=== PATIENT | male | born 1975 | race Caucasian/White ===

== ENCOUNTER 2022-07-31 12:30 | Outpatient (CLI) | payer OTHER, SELFPAY ==
--- OUTSIDE RECORDS SUMMARY | 2022-07-31 12:32 | XMS_ITS | Encounter Summary ---
:1975 Author Organization [facility] Address [address] [place] [address] Care Team Providers Name Role Phone Unavailable Primary Care Provider Unavailable Encounter Details Date Type Department Care Team Description 10/30/2019 Clinical Communication Department of Shankar Cervantes, Orthopedic Surgery in [place], [place] [address] [facility] [address] [place] [phone] [phone] Social History Tobacco Use Types Packs/Day Years Used Date Smoking Tobacco: Never Sex Assigned at Date Recorded Male 07/27/2022 1:15 PM CDT documented as of this encounter Miscellaneous Notes Telephone Encounter - Marilee Bauer - 10/30/2019 7:15 AM CST Could you please have Dr. Cervantes review this RAST pt request? Thank you, Idania AND ASH SUPERVISOR documented in this encounter Plan of Treatment Not on filedocumented as of this encounter Visit Diagnoses Not on filedocumented in this encounter
--- OUTSIDE RECORDS SUMMARY | 2022-07-31 12:32 | XMS_ITS | Encounter Summary ---
:1975 Author Organization [facility] Address [address] [place] [address] Care Team Providers Name Role Phone Unavailable Primary Care Provider Unavailable Encounter Details Date Type Department Care Team Description 08/29/2018 [facility] Reinaldo Benz evus Atypical (Primary Dx); AND JOSSY Lopez M.D. Melanocytic Nevi Of Other Parts Of Face [address] [facility] [address] [place] [address] [place], [place] [phone] Social History Tobacco Use Types Packs/Day Years Used Date Smoking Tobacco: Never Sex Assigned at Date Recorded Male 07/27/2022 1:15 PM CDT documented as of this encounter Plan of Treatment Not on filedocumented as of this encounter Visit Diagnoses Diagnosis Nevus Atypical - Primary Melanocytic Nevi Of Other Parts Of Face documented in this encounter
--- OUTSIDE RECORDS SUMMARY | 2022-07-31 12:32 | XMS_ITS | Encounter Summary ---
:1975 Author Organization [facility] Address [address] [place] [address] Care Team Providers Name Role Phone Unavailable Primary Care Provider Unavailable Encounter Details Date Type Department Care Team Description 11/26/2019 Clinical Communication Department of Shankar Cervantes, Orthopedic Surgery in [place], [place] [address] [facility] [address] [place] [address] [phone] Social History Tobacco Use Types Packs/Day Years Used Date Smoking Tobacco: Never Sex Assigned at Date Recorded Male 07/27/2022 1:15 PM CDT documented as of this encounter Miscellaneous Notes Telephone Encounter - Jose Morales APRN, C.N.P. - 11/26/2019 10:23 AM ENGLISH DIVISION CHAIR Order signed [facility]H DIVISION CHAIR Telephone Encounter - Marilee Bauer - 11/26/2019 9:36 AM CST Add to HART - Rosy Knee Pain ISH DIVISION CHAIR documented in this encounter Plan of Treatment Not on filedocumented as of this encounter Visit Diagnoses Diagnosis Pain Knee Left - Primary documented in this encounter
--- OUTSIDE RECORDS SUMMARY | 2022-07-31 12:32 | XMS_ITS | Encounter Summary ---
:1975 Author Organization [facility] Address [address] [place] [address] Care Team Providers Name Role Phone Unavailable Primary Care Provider Unavailable Reason for Visit Appointment Request (Routine) - Closed Specialty Diagnoses / Procedures Referred By Contact Refer red To Contact Dermatology Referral ID Status Reason Start Date Expiration Date Visits Requ ested Visits Authorized [id number] Closed 08/28/2018 08/28/2019 1 Encounter Details Date Type Department Care Team Description 09/02/2018 Comprehensive Visit Department of Bri Park (Primary Dx); Dermatology in [place] Dermatoheliosis [address], [place] [phone] Social History Tobacco Use Types Packs/Day Years Used Date Smoking Tobacco: Never Sex Assigned at Date Recorded Male 07/27/2022 1:15 PM CDT documented as of this encounter Consult Notes Bri Park M.D. - 09/02/2018 1:00 PM CDT Supervised by: Dr. Josef Solis, who was immediately available for consultation. Correspondence to Dr.Emily Park. CHIEF COMPLAINT / REASON FOR VISIT Multiple nevi of concern HISTORY OF PRESENT ILLNESS Mr. Eladio Jones is a 43 y.o. male with no significant past dermatologic history who presents today for evaluation of multiple nevi. He denies a personal or family history of skin cancers including nonmelanoma and melanoma skin cancers. 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 He wears sun protective clothing and does is a to protect himself from the sun. Today, the patient is concerned growing nevi on his face. He has had these lesions for greater than 20 year. They are slightly enlarging vertically and horizontally. He denies coloration changes or accompanying symptoms, such as pruritus, tenderness, or easy bleeding. PHYSICAL EXAM General: Awake, alert, in no acute distress, and with appropriate affect. Skin: A waist up skin examination was performed of head, neck, chest, back, and upper extremities per patient request. Chavarria type I skin. Diffuse solar lentigines throughout. He has 3 skin colored soft dome-shaped papule with regular comma shaped vessels under dermoscopy consistent with banal appearing dermal nevi involving the left upper cheek, left jawline, and right jawline. Scattered few light brown elliptical macules with regular reticular pigment network under dermoscopy consistent with banal appearing melanocytic nevi. He has scattered nicole angiomas. ASSESSMENT / PLAN #1 Banal-appearing nevi The ABCDE criteria for melanoma was reviewed with the patient. None of the patient's nevi reach the clinical threshold for biopsy. I recommend continued sun protection, self-skin examinations, and observation. Should any of the patient's nevi change in size, color, texture, or shape or develop symptoms such as itching or bleeding, I recommend an immediate return visit for reassessment. #2 Dermatoheliosis Sun protection and sun avoidance were reviewed with the patient. Educational materials were providedregarding skin self-examination, the warning signs and symptoms of skin cancer, and the proper use of sunscreens. I would recommend a full skin cancer screening examination with an appropriately trained clinician every year. #2 Nicole angiomas #3 Solar lentigines The benign nature of the skin lesion(s) was discussed with the patient. No treatment is required. I recommend continued observation. Should symptoms or changes develop related to this condition, I would recommend a return visit for reassessment. All questions answered. INFORMED CONSENT Discussed the risks, benefits, alternatives, and the necessity of other members of the healthcare team participating in the procedure. All questions answered and consent given. PATIENT EDUCATION Ready to learn. No apparent learning barriers were identified. Learning preferences include listening. Explained diagnosis and treatment plan; patient/guardian of patient expressed understanding of thecontent. documented in this encounter Plan of Treatment Not on filedocumented as of this encounter Visit Diagnoses Diagnosis Nevi Multiple - Primary Dermatoheliosis documented in this encounter
--- OUTSIDE RECORDS SUMMARY | 2022-07-31 12:32 | XMS_ITS | Encounter Summary ---
:1975 Author Organization [facility] Address [address] [place] [address] Care Team Providers Name Role Phone Unavailable Primary Care Provider Unavailable Reason for Referral Outpatient (Routine) - Closed Specialty Diagnoses / Procedures Referred By Contact Refer red To Contact Dermatology Diagnoses Keratosis Actinic Reinaldo Benz M.D. [facility] [address] [place] [id number] Referral ID Status Reason Start Date Expiration Date Visits Requ ested Visits Authorized [id number] Closed 09/01/2021 09/01/2022 1 1 Encounter Details Date Type Department Care Team Description 09/01/2021 [facility] Reinaldo Benz eratosis Actinic AND JOSSY Lopez M.D. (Primary Dx) 1999 [facility] [address] [place] [address] [place], [place] [phone] Social History Tobacco Use Types Packs/Day Years Used Date Smoking Tobacco: Never Sex Assigned at Date Recorded Male 07/27/2022 1:15 PM CDT documented as of this encounter Plan of Treatment Scheduled Referrals Name Type Priority Associated Order Schedule Diagnoses Dermatology Referral Outpatient Referral Routine Keratosis Act inic Expected: 09/01/2021 (Approximate), Expires: 09/01/2024 documented as of this encounter Visit Diagnoses Diagnosis Keratosis Actinic - Primary documented in this encounter
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
--- OUTSIDE RECORDS SUMMARY | 2022-07-31 12:32 | XMS_ITS | Encounter Summary ---
:1975 Author Organization [facility] Address [address] [place] [address] Care Team Providers Name Role Phone Unavailable Primary Care Provider Unavailable Encounter Details Date Type Department Care Team Description 10/28/2019 [facility] Reinaldo Benz Knee Left AND JOSSY Lopez M.D. (Primary Dx) [address] [place] [address] [address] [place] [address] [place], [place] [phone] Social History Tobacco Use Types Packs/Day Years Used Date Smoking Tobacco: Never Sex Assigned at Date Recorded Male 07/27/2022 1:15 PM CDT documented as of this encounter Plan of Treatment Not on filedocumented as of this encounter Visit Diagnoses Diagnosis Pain Knee Left - Primary documented in this encounter
--- OUTSIDE RECORDS SUMMARY | 2022-07-31 12:32 | XMS_ITS | Encounter Summary ---
:1975 Author Organization [facility] Address [address] [place] [address] Care Team Providers Name Role Phone Unavailable Primary Care Provider Unavailable Encounter Details Date Type Department Care Team Description 10/25/2021 Ancillary Procedure Department of Dermatology Social History Tobacco Use Types Packs/Day Years Used Date Smoking Tobacco: Never Sex Assigned at Date Recorded Male 07/27/2022 1:15 PM CDT documented as of this encounter Plan of Treatment Not on filedocumented as of this encounter Procedures Procedure Name Priority Date/Time Associated Comments Diagnosis DERMATOLOGY IMAGE Routine 10/25/2021 2:55 PM Resu lts for this EXAM [employer] procedure are i n the results section. documented in this encounter Results cheek, left upper 13-Dermatology Image Exam (10/25/2021 2:55 PM [employer]) Specimen (Source) Anatomical Collection Method Collection Time Re ceived Time Location / / Volume Laterality 10/25/2021 2:53 PM [employer] Narrative [facility] - 10/25/2021 3:06 PM [employer] This order has been created and auto-finalized to support the import of images acquired without order. The clini emeka documentation to support these images can be found on the encounter jen t produced images. Provider Not In System IMG NON RAD IMAGING PROCEDUR ES Performing Organization Address City/State/ZIP Code Phon e Number [facility] NA documented in this encounter Visit Diagnoses Not on filedocumented in this encounter
--- OUTSIDE RECORDS SUMMARY | 2022-07-31 12:32 | XMS_ITS | Clinical Summary ---
:1975 Author Organization [facility] Address [address] [place] [address] Care Team Providers Name Role Phone Unavailable Primary Care Provider Unavailable Source Comments Patient records contain information from all sites at [facility]. For routine questions regarding patient records, call [phone] during business hours, M-F 8:00 AM - 5:00 PM Central Time. Record requests for emergency care only can be directed to [phone] at any time.[facility] Allergies No known active allergies Medications Medication Sig Dispensed Refills Start Date End Date Status fexofenadine (SUN) Take 1 tablet by 0 09/02/2014 Active 180 mg tablet mouth daily. lisinopril Take 1 tablet by 0 09/02/2014 A ctive (PRINIVIL,ZESTRIL) 10 mouth daily. mg tablet minocycline (DYNACIN) Take 1 tablet by 0 09/02/2014 Active 100 mg tablet mouth daily. Active Problems Problem Noted Date Hypertension 07/16/2011 Overview: Hypertension date of onset unknown Immunizations Name Administration Dates Next Due Influenza, Unspecified 09/06/2014, 08/30/2012 Tdap 09/02/2012, 06/19/2012 Family History Medical History Relation Name Comments Heart attack Father Hypertension Father Relation Name Status Comments Father Social History Tobacco Use Types Packs/Day Years Used Date Smoking Tobacco: Never Sex Assigned at Date Recorded Male 07/27/2022 1:15 PM CDT Last Filed Vital Signs Vital Sign Reading Time Taken Comments Blood Pressure 126/68 09/13/2015 12:49 Vital sign r esult PM CDT from Clinical No jennifer. Pulse 48 09/13/2015 12:49 Vital sign r esult PM CDT from Clinical No jennifer. Temperature - - Respiratory Rate 18 09/13/2015 12:49 Vital sign result PM CDT from Clinical No jennifer. Oxygen Saturation - - Inhaled Oxygen - - Concentration Weight 74.4 kg (163 lb 15.7 09/13/2015 12:49 Vital s ign result oz) PM CDT from Clinical No jennifer. Height 172.7 cm (5' 7.99) 09/13/2015 12:49 Vital si gn result PM CDT from Clinical No jennifer. Body Mass Index 24.94 09/13/2015 12:49 PM CDT Plan of Treatment Health Maintenance Due Date Last Done Comments CT Colonography 1977 Cologuard 1975 Colonoscopy 1975 Colorectal Cancer Screening 1975 FIT 1975 HIV Screening 1975 Hepatitis B Vaccines (1 of 1977 3 - 3-dose series) Hepatitis C Screening 1975 Office Visit for Blood 1977 Pressure Check / Re-check Creatinine Level 08/30/2015 08/30/2014, 12/26/2012 Potassium Level 08/30/2015 08/30/2014, 12/26/2012 Sodium Level 08/30/2015 08/30/2014, 12/26/2012 Fasting Glucose for 08/30/2017 08/30/2014, 12/26/2012 Diabetes Screening Lipid (Cholesterol) 12/21/2018 12/21/2013, 01/16/2013 Screening COVID-19 Vaccine (2 - 10/26/2021 10/05/2021 Pfizer series) Depression Screening 11/18/2021 (Annual PHQ-2) Influenza Vaccine (#1) 2022 08/16/2021, 08/16/2020, 09/01/2019, Additional history exists DTaP,Tdap,and Td Vaccines 02/20/2032 02/19/2022, 09/02/2012 , (4 - Td or Tdap) 06/19/2012 Pneumococcal vaccine (0-64 Aged Out 09/16/2018 No lo nger eligible years) based on patient 's age to complete this topic Medical Devices Implanted Type Area Stereotype Caster Device Shelf Model / Identifier Expiration Date Ser ial / Lot Conversions - Default Historical Implant Device Misc Other Implanted: 09/02/2014 (Quantity not on file) Description: Device Status Text - Misc O ther. screws in left knee. Insurance Payer Benefit Plan Subscriber ID Effective Dates Phone Address Type / Group [facility]ICA [facility] [id number] 2018-Lan [phone] [address] [id number] PPO EMPLOYEE PLAN t [address] [place] [id number]
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
--- OUTSIDE RECORDS SUMMARY | 2022-07-31 12:32 | XMS_ITS | Encounter Summary ---
:1975 Author Organization [facility] Address [address] [place] [address] Care Team Providers Name Role Phone Unavailable Primary Care Provider Unavailable Reason for Visit Outpatient (Routine) - Closed Specialty Diagnoses / Procedures Referred By Contact Refer red To Contact Dermatology Diagnoses Keratosis Actinic Reinaldo Benz M.D. [facility] [address] [place] [id number] Referral ID Status Reason Start Date Expiration Date Visits Requ ested Visits Authorized [id number] Closed 09/01/2021 09/01/2022 1 1 Encounter Details Date Type Department Care Team Description 10/25/2021 Comprehensive Visit Department of Waldo Masono heliosis (Primary Dx); Dermatology in [place] Act in[facility]; Erika Brar [facility] [address] [place] [phone] Social History Tobacco Use Types Packs/Day Years Used Date Smoking Tobacco: Never Sex Assigned at Date Recorded Male 07/27/2022 1:15 PM CDT documented as of this encounter Consult Notes Yonis Mason M.D. - 10/25/2021 2:40 PM CST Supervised by: Dr. Gray. Supervising practice consultant, Dr. Gray, was immediately available, but consultation was not required. Correspondence to Dr. Yonis Mason. REFERRED BY: Reinaldo Benz M.D. [address] [place] [id number] CHIEF COMPLAINT Actinic keratosis HISTORY OF PRESENT ILLNESS Robert is a 46 y.o. adult last seen in 2018 by [facility] Dermatology. Eladio Jones presents today for skin cancer screening examination. He has no significant past dermatologic history, but does have multiple nevi.He denies a personal or family history of skin cancers including nonmelanoma and melanoma skin cancers. 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 He wears sun protective clothing and does is a to protect himself from the sun. He reports scaling and red areas on the frontal scalp and hair line. He reports he picks scale off of these areas at time. Sometime one of the lesions bleeds. These areas have been frozen before. Patient also reports a lesion on the left upper cheek. He is unsure if it is increasing in size but does believe that it has. He believes that it is a mole. It becomes irritated by his mask due to its location. No treatments have been trialed at this site. Patient denies any of new, changing, and/or symptomatic lesion(s).Review of systems was negative forfever, chills, unintended weight loss, or lymphadenopathy. PAST MEDICAL/SURGICAL HISTORY No past medical history on file. PHYSICAL EXAM General: Awake, alert, in no acute distress, and with appropriate affect. Eyes: No eyelid abnormalities. No scleral injection. Skin: Focused skin exam of the face was performed per request of the patient. Chavarria skin type 2. Dermatoheliosis of the sun-exposed skin present. Patient has 5 actinic keratoses involving the face. Patient has an irritated nevus on the left upper cheek. There polymorphous vessels on dermoscopy. Noblue white veil or irregular pigmentation is appreciated. ASSESSMENT AND PLAN # dermatoheliosis Sun protection and sun avoidance were reviewed with the patient. Counseling and/or educational materials were provided regarding skin self-examination, the warning signs and symptoms of skin cancer, and the proper use of sunscreens. Recommend at least 30 SPF broad-spectrum sun screen reapplied every 2hours when outside. Avoid peak hours of sun exposure between 10 a.m. and 4 p.m. if possible. Sun protective clothing also discussed. Recommend a full skin cancer screening examination with an appropriately trained clinician every 1-2 years or sooner if concerning lesions arise prior. # actinic keratosis x 5 Given the precancerous nature of this lesion(s), treatment is medically indicated. After discussion of the risks, benefits and alternatives to treatment with cryotherapy, informed consent was obtained.We treated a total of 5 lesion(s) with two freeze-thaw cycles of liquid nitrogen cryotherapy. The pat ient tolerated the procedure well. Aftercare instructions were provided in written and verbal form to the patient. Should any of these lesions recur, the patient should return for biopsy or further evaluation. Discussed the risks, benefits, alternatives, and the necessity of other members of the healthcare team participating in the procedure. All questions answered and consent given. # changing nevus, polymorphous vessels, rule out atypical nevus versus melanoma, left upper cheek Given the irritated and changing nature of this lesion along with dermoscopy features I have recommended biopsy. The patient was amenable and tolerated the procedure well. CONSENT Discussed the risks, benefits, alternatives, and the necessity of other members of the healthcare team participating in the procedure. All questions answered and consent given. UNIVERSAL PROTOCOL Procedural pause conducted to verify: correct patient identity, procedure to be performed, and as applicable, correct side and site, correct patient position, and availability of implants, special equipment, or special requirements. PROCEDURE INFORMATION Punch biopsy. We explained the potential diagnosis and recommended that we obtain a biopsy. The risks and benefitsof the procedure were discussed, and the patient consented to these procedures. Using 1% lidocaine with epinephrine for local anesthesia, a 6-mm punch biopsy was obtained from the left upper cheek. Biopsy submitted to Dermatopathology. Biopsy site closed with a top layer of 5-0 nylon and 4-0 nylon. The skin sutures need to be removed in 5-7 days. Dressing was applied, and wound care instructions wereexplained. Biopsy results and any further recommendations will be communicated to the patient by letter. Patient given pamphlet [id number]. All questions were answered. Level of Service: 87603 E/N/C: E Mod 25: Y AK x 5 Punch x 1 Electronically signed by: Yonis Mason M.D. 10/25/21 5:37 PM ANIMAL CARE PROVIDER AL CARE PROVIDER documented in this encounter Plan of Treatment Not on filedocumented as of this encounter Procedures Procedure Name Priority Date/Time Associated Diagnosis Comme nts DERMATOPATHOLOGY Routine 10/25/2021 2:51 PM Keratosis Actinic Results for this ANIMAL CARE PROVIDER procedure are i n the results section. documented in this encounter Results Dermatopathology (10/25/2021 2:51 PM ANIMAL CARE PROVIDER) Component Value Ref Test Analysis Performed Pathologis t Range Method Time At Signature 10/30/2021 [facility] 8:55 AM ANIMAL CARE PROVIDER Report Claudia ICiera 10/30/2021 [facility] electronically Erika Gastelum 8:55 AM ANIMAL CARE PROVIDER signed by Gross Description Received in formalin labeled with the patient's n nan, 10/30/2021 [facility] medical record number, and left upper cheek is a 0.7 x 8:55 AM ANIMAL CARE PROVIDER 0.6 cm, ovoid, pale-romero skin punch biopsy excised to a depth of 0.2 cm. ??There is a 0.5 x 0.4 cm pale romero-romero, slightly bosselated lesion with irregular borders eccentrically located on the skin surface. ??The specimen is bisected and submitted entirely in cassette A1. ??Grossed by MICAH. Interpretation FINAL DIAGNOSIS 10/30/2021 [facility] A. ??Left upper cheek, Skin punch biopsy: ??Dermal nevus, 8:55 AM ANIMAL CARE PROVIDER involving peripheral biopsy borders Specimen (Source) Anatomical Collection Method Collection Time Re ceived Time Location / / Volume Laterality Skin (Left upper 10/25/2021 2:51 PM cheek) ANIMAL CARE PROVIDER Narrative This result has an attachment that is no t available. Yonis Mason M.D. LAB PATH DERM ORDERABLES Performing Organization Address City/State/ZIP Code Phon e Number [facility] - [address] [place], [place] [address] [place] [address] [facility] [address] documented in this encounter Visit Diagnoses Diagnosis Dermatoheliosis - Primary Keratosis Actinic Nevus Changing documented in this encounter
--- OUTSIDE RECORDS SUMMARY | 2022-07-31 12:32 | XMS_ITS | Encounter Summary ---
:1975 Author Organization [facility] Address [address] [place] [address] Care Team Providers Name Role Phone Unavailable Primary Care Provider Unavailable Encounter Details Date Type Department Care Team Description 08/28/2018 Abstract DATA ABSTRACTION Provider, Historical Social History Tobacco Use Types Packs/Day Years Used Date Smoking Tobacco: Never Sex Assigned at Date Recorded Male 07/27/2022 1:15 PM CDT documented as of this encounter Plan of Treatment Not on filedocumented as of this encounter Visit Diagnoses Not on filedocumented in this encounter
--- OUTSIDE RECORDS SUMMARY | 2022-07-31 12:32 | XMS_ITS | Encounter Summary ---
:1975 Author Organization [facility] Address [address] [place] [address] Care Team Providers Name Role Phone Unavailable Primary Care Provider Unavailable Reason for Visit Reason Onset Date Comments Outside L knee MRI 11/16/2019 Encounter Details Date Type Department Care Team Description 11/16/2019 Clinical Communication Department of Shankar Cervantes, Out side L knee MRI Orthopedic Surgery M[facility]iera in [place], [facility] [address] [place], [place] [address] [facility] [address] [place], [place] [phone] (Work) [phone] Social History Tobacco Use Types Packs/Day Years Used Date Smoking Tobacco: Never Sex Assigned at Date Recorded Male 07/27/2022 1:15 PM CDT documented as of this encounter Miscellaneous Notes Telephone Encounter - Lucie Campo - 11/16/2019 12:19 PM CST Outside L knee MRI done 11/12/19 is in [facility] for appt review. [employer] documented in this encounter Plan of Treatment Not on filedocumented as of this encounter Visit Diagnoses Not on filedocumented in this encounter
--- OUTSIDE RECORDS SUMMARY | 2022-07-31 12:32 | XMS_ITS | Encounter Summary ---
:1975 Author Organization [facility] Address [address] [place] [address] Care Team Providers Name Role Phone Unavailable Primary Care Provider Unavailable Encounter Details Date Type Department Care Team Description 09/06/2014 Hospital Encounter HX [facility] Josias Patterson, N.P. [address] [place] [address] 7701 (Wo rk) Social History Tobacco Use Types Packs/Day Years Used Date Smoking Tobacco: Never Assessed Sex Assigned at Date Recorded Male 07/27/2022 1:15 PM CDT documented as of this encounter Last Filed Vital Signs Vital Sign Reading Time Taken Comments Blood Pressure 129/77 09/06/2014 9:23 AM CDT Pulse 51 09/06/2014 9:23 AM CDT Temperature - - Respiratory Rate 18 09/06/2014 9:23 AM CDT Oxygen Saturation - - Inhaled Oxygen Concentration - - Weight 73.6 kg (162 lb 4.1 oz) 09/06/2014 9:23 AM CDT Height 174 cm (5' 8.5) 09/06/2014 9:23 AM CDT Body Mass Index 24.31 09/06/2014 9:23 AM CDT documented in this encounter Medications at Time of Discharge Medication Sig Dispensed Refills Start Date End Date fexofenadine (SUN) 180 Take 1 tablet by 0 mg tablet mouth daily. lisinopril Take 1 tablet by 0 09/02/2014 (PRINIVIL,ZESTRIL) 10 mg mouth daily. tablet minocycline (DYNACIN) 100 Take 1 tablet by 0 08/18 mg tablet mouth daily. documented as of this encounter Progress Notes Ele Patterson, N.P. - 09/06/2014 9:13 AM CDT [id number] CHIEF COMPLAINT/REASON FOR VISIT Followup from recent visits regarding dizziness. HISTORY OF PRESENT ILLNESS Eladio is a 39-year-old male who is here today for followup on some spells of dizziness he has been experiencing. He was actually seen in our emergency room on the 30 of August. He reports that what prompted him to come in is that for actually the past several weeks he would be having what he calls low level instability, but on that day it seemed to get particularly worse. He states he was having very significant dizziness that was a little bit frightening. He has had subsequent followup with neurology at [facility] in [place]. He has had MRIs done as well as a very thorough evaluation of his symptoms. Per Dr. Kimble, the neurologist that he saw at [facility] in [place], it is possible his d izziness could be related to some type of vestibular migraine. Additionally, it was also interestingwith these symptoms he had shingles several weeks prior to the onset of the symptoms. Eladio reports that for the most part things are getting a little bit better. He does have still some pretty significant dizziness if he is moving about too quickly, otherwise he has more just some of the low level dizziness. He also notes that fluorescent lights sometimes will trigger his symptoms as well. The plan for followup is just to continue to monitor his symptoms with the hope that they will resolve without any significant intervention. Certainly, he can follow up with Dr. Kimble as needed. He was also talking with his who is also a neurologist and they discussed possibly stopping minocycline and trying some other type of oral antibiotic to help with his acne. Per his report, the minocycline may havesome type of vestibular effect and he is open to trying something different. He otherwise denies anyconcerns today. He will receive a flu shot. MEDICATIONS Reviewed. Changes today include the discontinuation of minocycline. New prescription for cephalexin 500 mg 1 tablet 2 times daily. ALLERGIES No known drug allergies. PAST MEDICAL/SURGICAL HISTORY Reviewed and unchanged. Please see EMR. VITAL SIGNS Temp 36.1, pulse 51, respirations 18, blood pressure 129/77, O2 saturation is 100% on room air. IMPRESSION/REPORT/PLAN 1. Recent episodes of dizziness, possible vestibular migraines. 2. History of acne, on oral antibiotics. PLAN: 1. In regard to Eladio's dizziness symptoms, at this point in time I would suggest that we continue tofollow the plan set forth by Dr. Kimble with monitoring of his symptoms. He has had a very thorough evaluation with MRIs, lab work and evaluation, with no significant red flag type symptoms. Certainly,if his symptoms are worsening he could touch base again with Dr. Kimble. 2. Minocycline was discontinued today. He may start on cephalexin 500 mg 1 tab daily for treatment of acne. Eladio's questions have been addressed and he is agreeable to this plan of care. Ready to learn. No apparent learning barriers were identified. Learning preferences include listening. Explained diagnosis and treatment plan. Patient/Child/Caregiver expressed understanding of the content. Malka Moy/kale Electronically Signed By: ELE PATTERSON SENIOR BENEFITS ANALYST On: 09/28/2014 12:22 PM Source: [facility] [email or web address] Document Id: [id number] TWIST OPERATOR documented in this encounter Miscellaneous Notes Telephone Encounter - Conversion, Historical Provider Ser - 03/30/2015 11:02 AM CDT transfering to [place] PCP From: RADHA KUHN V Sent: 03/30/2015 11:02:34 CDT Subject: transfering to [place] PCP refill request received for lisinopril. Pt contacted for new PCP info as Emily no longer here.Pt indicated he will be seeing a PCP in [place] & will update pharmacy Source: [facility] POWERCHART Document Id: [id number] Miscellaneous - Casie Salas L.P.N. - 09/06/2014 9:23 AM CDT Adult Bus Washer Intake/History Adult Bus Washer Intake/History Entered On: 09/06/2014 9:29 CDT Performed On: 09/06/2014 9:23 CDT by CASIE SALAS AUTOMOBILE AND PROPERTY UNDERWRITER Intake Chief Complaint : was having dizzy spells last week, also had shingles Onset of Symptoms : had a MR last week Temperature Core : 36.1 DegC(Converted to: 97.0 DegF) (LOW) Peripheral Pulse Rate : 51 /min (LOW) Respiratory Rate : 18 /min Heart Rhythm : Regular Systolic Blood Pressure : 129 mmHg Diastolic Blood Pressure : 77 mmHg NIBP Mean : 94 mmHg BP Location : Left upper extremity Blood Pressure Cuff Size : Regular SpO2 : 100 % Oxygen Therapy : Room air Height : 174 cm(Converted to: 5 ft 9 inch(es), 69 inch(es)) Actual Weight : 73.6 kg(Converted to: 162 lb 4 oz) Weight Source : Standing scale Dosing Weight Clinic : 73.6 kg Clinic BSA : 1.89 Body Mass Index : 24.31 kg/m2 CASIE SALAS [facility] - 09/06/2014 9:23 CDT General Info Information Given By : Patient Languages : Urugu[place] Is Patient Female and 13-50 no hysterectomy : No CASIE SALAS [facility] - 09/06/2014 9:23 CDT Subjective Pain Symptoms : No CASIE SALAS [facility] - 09/06/2014 9:23 CDT Dependent Habits Tobacco Use/Currently Using : No Smoking Status : Never smoker CASIE SALAS [facility] - 09/06/2014 9:23 CDT Tobacco Use Grid Last Use : never CASIE SALAS [facility] - 09/06/2014 9:23 CDT Alcohol Use : Yes CASIE SALAS [facility] - 09/06/2014 9:23 CDT Caffeine Use Grid Caffeine Use : Current Type : Coffee Frequency : Daily CASIE SALAS [facility] 09/06/2014 9:23 CDT Recreational Drug Use Grid Drug Use : None CASIE SALAS [facility] - 09/06/2014 9:23 CDT Source: [facility] Document Id: [id number] CDT!42 documented in this encounter Plan of Treatment Not on filedocumented as of this encounter Visit Diagnoses Not on filedocumented in this encounter
--- OUTSIDE RECORDS SUMMARY | 2022-07-31 12:32 | XMS_ITS | Encounter Summary ---
:1975 Author Organization [facility] Address [address] [place] [address] Care Team Providers Name Role Phone Unavailable Primary Care Provider Unavailable Encounter Details Date Type Department Care Team Description 01/06/2019 [facility] AND Grant Benz am (Primary Dx) JOSSY Lopez M.D. [address] [place] [address] [address], [place] [address] [place], [place] [phone] Social History Tobacco Use Types Packs/Day Years Used Date Smoking Tobacco: Never Sex Assigned at Date Recorded Male 07/27/2022 1:15 PM CDT documented as of this encounter Plan of Treatment Not on filedocumented as of this encounter Visit Diagnoses Diagnosis Rash - Primary documented in this encounter
--- OUTSIDE RECORDS SUMMARY | 2022-07-31 12:32 | XMS_ITS | Encounter Summary ---
:1975 Author Organization [facility] Address [address] [place] [address] Care Team Providers Name Role Phone Unavailable Primary Care Provider Unavailable Encounter Details Date Type Department Care Team Description 08/30/2014 Hospital Encounter HX [facility] ED Perla Nicole De La Paz M.D. [address] [place] [address] [phone] (Wo rk) Social History Tobacco Use Types Packs/Day Years Used Date Smoking Tobacco: Never Assessed Sex Assigned at Date Recorded Male 07/27/2022 1:15 PM CDT documented as of this encounter Last Filed Vital Signs Vital Sign Reading Time Taken Comments Blood Pressure 140/86 08/30/2014 2:16 PM CDT Pulse - - Temperature - - Respiratory Rate 18 08/30/2014 5:09 PM CDT Oxygen Saturation - - Inhaled Oxygen Concentration - - Weight - - Height 174 cm (5' 8.5) 08/30/2014 5:09 PM CDT Body Mass Index - - documented in this encounter Discharge Summaries Katelynn Bolanos R.N. - 08/30/2014 5:23 PM CDT ED Discharge Instructions [address] [address] Name: MARKO JONES Date of : 1975 12:00 AM Visit Date: 08/30/2014 1:53 PM [facility] Number: [id number] Address: [address] [place] [id number] Primary Care Provider: VIDHI DASH NP IMPORTANT: [facility] in [place] would like to thank you for allowing us to assist you with your healthcare needs. The following includes patient education materials and informationregarding your injury/illness. Diagnosis: Vertigo NOS Follow-Up Instructions: With: Address: When: Referral will be placed for neurology and an MRI of your brain. Within As Soon As Possible Comments: With: Address: When: VIDHI DASH [address] [phone] Business (1) Within As Needed Comments: Your Upcoming Appointments: Date Time Location Provider 09/06/2014 09:00 [facility] Family [facility] Vidhi Pandey Patient Education Materials: [id number] DIZZINESS [Uncertain cause] Dizziness is a common symptom sometimes described as lightheadedness or feeling like you are goingto faint. If it lasts for only a few seconds and is related to changes in position (such as getting up after lying or sitting for a long time), it is usually not a sign of anything serious. Dizziness that lasts for minutes to hours, or comes on for no apparent reason, may be a sign of a more serious problem (such as dehydration, a medicine reaction, disease of the heart or brain). Today's exam did not show an exact cause for your dizzy spell . Sometimes additional tests are required before a cause can be found. Therefore, it is important to follow up with your doctor if your symptoms continue. HOME CARE: 1) If a dizzy spell occurs and lasts more than a few seconds, lie down until it passes. If you are lying down, then you cannot hurt yourself by falling if you do faint. 2) Do not drive or operate dangerous equipment until the dizzy spells have stopped for at least 48 hours. 3) If dizzy spells occur with sudden standing, this may be a sign of mild dehydration. Drink extra fluids over the next few days. 4) If you recently started a new medicine or if you had the dose of a current medicine increased (especially blood pressure medicine), talk with the prescribing doctor about your symptoms. Dose adjustments may be needed. FOLLOW UP with your doctor for further evaluation within the next seven days, if your symptoms continue. GET PROMPT MEDICAL ATTENTION if any of the following occur: -- Worsening of your symptoms -- Fainting, headache or seizure -- Repeated vomiting -- Feeling like you or the room is spinning -- Chest, arm, neck, back or jaw pain -- Palpitations (the sense that your heart is fluttering or beating fast or hard) -- Shortness of breath -- Blood in vomit or stool (black or red color) -- Weakness of an arm or leg or one side of the face -- Difficulty with speech or vision ?? [id number] [employer]ah[employer], [address] [place] [address]. All rights reserved. This information is not intended as a substitute for professional medical care. Always follow your healthcare professional's instructions. ED Tests and Procedures: Order Status Automated Diff-5 Part Completed Thyroid Stimulating Hormone Completed Oxygen - ED Ordered CBC (includes Auto Differential) Completed Comprehensive Metabolic Panel Completed CT Head w/o contrast Completed Misc Lab Test Ordered Discharge Prescriptions & Home Medications: Medication/Strength Dose Route Frequency Indications/Special Instructions/Comments/Notes ibuprofen (ibuprofen 200 mg oral tablet) 400 mg Oral every 4 hours minocycline (minocycline 100 mg oral tablet) 100 mg Oral once a day desoximetasone topical (desoximetasone 0.25% topical cream) 1 christy Topical two times a day lisinopril (lisinopril 10 mg oral tablet) 10 mg Oral once a day fexofenadine (fexofenadine 180 mg oral tablet) 180 mg Oral once a day Seasonal allergies Comment: Attention: If you have any medications at home not on this list, DO NOT take them until you contact your provider for clarification. Give a copy of your medication list to your primary care provider. Update your medication list any time medications or doses are changed and carry your medication list at all times in case of emergency. Medication Reconciliation: Reconciliation is a process of identifying the most accurate list of all medications a patient is taking - including name, dosage, frequency, and route - and using this list to provide to the patient information about how to take those medications. MARKO JONES or anamaria has reviewed the home medications you have listed with us. Review the following instructions: You have NOT received any prescriptions and you have told us you are not currently taking any home medications You have NOT received any prescriptions. You have been provided a discharge medications list and you may CONTINUE taking your medications as previously prescribed by your regular providers. You have received the listed prescriptions and BEGIN all listed prescriptions as directed. Since you have listed no home medications, please check with your family doctor if you are taking any other medications. You have received the listed prescriptions and BEGIN all listed prescriptions as directed. Youhave been provided a discharge medications list and you may CONTINUE all home medications as previously prescribed by your regular providers. You have received the listed prescriptions and BEGIN all listed prescriptions as directed. Youhave been provided a discharge medications list. The following CHANGES have been made to your medication list; Otherwise, CONTINUE all home medications as previously prescribed by your regular provider. IMPORTANT: We examined and treated you today on an emergency basis only. This was not a substitute for, or an effort to provide, complete medical care. In most cases, you must let your doctor check youagain. Tell your doctor about any new or lasting problems. We cannot recognize and treat all injuries or illnesses in one Emergency Department visit. If you had special tests, such as EKG's or X- rays, we will review them again within 24 hours. We will call you if there are any new suggestions. Please follow the instructions above carefully. If you are being transferred to another facility your followup plan of care will be determined by the receiving facility. If you are a patient that is being discharged from the Emergency Department after receiving narcotics or other medications that may impair your judgment you may be a risk to yourself or others if you operate a motor vehicle. We recommend that you arrange a ride home with a responsible alliance party. NEERAJ Petersen JOHN LAWRENCE , or responsible alliance party have received this information and my questions have been answered. I have discussed any challenges I see with this plan with the nurse or physician. Patient Signature or Responsible Democrat/Relationship Date Time Provider Signature Date Time Medication Reconciliation: Reconciliation is a process of identifying the most accurate list of all medications a patient is taking - including name, dosage, frequency, and route - and using this list to provide to the patient information about how to take those medications. MARKO JONES or designee has reviewed the home medications you have listed with us. Review the following instructions: You have NOT received any prescriptions and you have told us you are not currently taking any home medications You have NOT received any prescriptions. You have been provided a discharge medications list and you may CONTINUE taking your medications as previously prescribed by your regular providers. You have received the listed prescriptions and BEGIN all listed prescriptions as directed. Since you have listed no home medications, please check with your family doctor if you are taking any other medications. You have received the listed prescriptions and BEGIN all listed prescriptions as directed. Youhave been provided a discharge medications list and you may CONTINUE all home medications as previously prescribed by your regular providers. You have received the listed prescriptions and BEGIN all listed prescriptions as directed. Youhave been provided a discharge medications list. The following CHANGES have been made to your medication list; Otherwise, CONTINUE all home medications as previously prescribed by your regular provider. IMPORTANT: We examined and treated you today on an emergency basis only. This was not a substitute for, or an effort to provide, complete medical care. In most cases, you must let your doctor check youagain. Tell your doctor about any new or lasting problems. We cannot recognize and treat all injuries or illnesses in one Emergency Department visit. If you had special tests, such as EKG's or X- rays, we will review them again within 24 hours. We will call you if there are any new suggestions. Please follow the instructions above carefully. If you are being transferred to another facility your followup plan of care will be determined by the receiving facility. If you are a patient that is being discharged from the Emergency Department after receiving narcotics or other medications that may impair your judgment you may be a risk to yourself or others if you operate a motor vehicle. We recommend that you arrange a ride home with a responsible alliance party. I, MARKO JONES , or responsible alliance party have received this information and my questions have been answered. I have discussed any challenges I see with this plan with the nurse or physician. Patient Signature or Responsible Democrat/Relationship Date Time Provider Signature Date Time Source: [facility] Document Id: [id number] Katelynn Bolanos R.N. - 08/30/2014 5:23 PM CDT ED Depart Summary [facility] Emergency Department Clinical Discharge Summary PERSON INFORMATION Name MARKO JONES Age 39 Years 1975 12:00 AM Sex Male Language Jordanian PCP VIDHI DASH NP Marital Status N [id number] Visit Id Visit Reason Episodic recurrent vertigo; periodic dizzy spells occuring more intensely and frequently, about 2 weeks he had shingles Specialty Enc Type Emergency Med Service Emergency Medicine Referred by Track Group [facility] ED Discharge 08/30/2014 5:23 PM Tracking Id [id number] Checkout 08/30/2014 5:23 PM Checkin 08/30/2014 1:53 PM Acuity 3 -Urgent Dispo Type * Discharged to Home or Self Care Arrival 08/30/2014 1:53 PM Reg Status Complete LOS 000 03:30 Address: [address] [place] [address] Comment: PROVIDER INFORMATION Provider Role Provider Contact Time KATELYNN BOLANOS ROUTE AGENT Nurse 08/30/14 14:16 NICOLE WOLFE MD ED Provider 08/30/14 14:25 DIAGNOSIS Vertigo NOS Comment: PATIENT EDUCATION INFORMATION Instructions: DIZZINESS, Unk Cause Follow up: With: Address: When: Referral will be placed for neurology and an MRI of your brain. Within As Soon As Possible Comments: With: Address: When: VIDHI DASH [address] [phone] Business (1) Within As Needed Comments: Source: [facility] Document Id: [id number] documented in this encounter H&P Notes Nicole Rich M.D. - 08/30/2014 2:51 PM CDT Episodic recurrent vertigo Patient: MARKO JONES Age: 39 years Sex: Male : 1975 Author: NICOLE WOLFE MD Attachments: None Associated Diagnosis: Vertigo NOS Basic Information Additional information: Chief Complaint from Nursing Triage Note : Chief Complaint Description 08/30/2014 14:20 CDT Chief Complaint Description see triage note 08/30/2014 14:16 CDT Chief Complaint Description 39 year old male admitted to ER with complaint of vertigo that started 2 weeks ago. States its periodic in nature. States lighting seems to agrivate it.. History of Present Illness The patient presents with vertigo. The onset was 2 weeks ago. The course/duration of symptoms is worsening and fluctuating in intensity. The character of symptoms is off-balance. Risk factors consist of hypertension. Prior episodes: rare. Associated symptoms: headache and dizziness. Patient notes a history of headaches. Was dx'd with zoster on back over 2 weeks ago. Started on antivirals. A few days after starting med, developed dizzy spells which he describes as feeling like he just got off a [id number] or had a few beers. He feels unsteady with walking and has run into things, but has not fallen over. Typically sensation lasts 3-4 hours, but today it was worse and lasted longer. Has increased in frequency/intensity. Does not seem to be associated with his headaches. Certain lights can exacerbate sx. No nausea, tinnitus, hearing loss. Has noticed difficulty focusing his vision, but no definite blurred vision. Also relates having a hard time thinking clearly and getting his thoughts across with one episode.. Review of Systems Constitutional symptoms: No fever, no chills, no weakness or no fatigue. Eye symptoms: Recent vision problems. ENMT symptoms: Nasal congestion, but no sore throat. Respiratory symptoms: No shortness of breath or no cough. Cardiovascular symptoms: No chest pain. Gastrointestinal symptoms: No abdominal pain, no nausea, no vomiting, no diarrhea or no constipation. Genitourinary symptoms: No dysuria. Musculoskeletal symptoms: No back pain or no Muscle pain. Neurologic symptoms: Headache and dizziness, but no numbness or no tingling. Health Status Allergies: Allergic Reactions (Selected) NKA. Medications: (Selected) Prescriptions Prescribed desoximetasone 0.25% topical cream: 1 christy, Topical, 2xDay, 60 gm fexofenadine 180 mg oral tablet: 180 mg, 1 tab(s), PO, Daily, 30 tab(s) lisinopril 10 mg oral tablet: 10 mg, 1 tab(s), PO, Daily, 90 tab(s) minocycline 100 mg oral tablet: 100 mg, 1 tab(s), PO, Daily, 30 tab(s) Documented Medications Documented ibuprofen 200 mg oral tablet: 400 mg, 2 tab(s), PO, q4hr. Past Medical/ Family/ Social History Medical history: Active Acne NOS (706.1): Onset in 2006 at 32 years. Comments: 07/16/2011 CDT 9:39 CDT - FREDDIE BECKER LPN date of onset unknown. Surgical history: Wrist (SNOMED CT 953712152) in 1998 at 24 Years. Comments: 07/16/2011 09:32 - FREDDIE BECKER LPN right wrist had surgery when 18 ACL - Anterior cruciate ligament rupture (SNOMED CT 095408495) in 1997 at 23 Years. Comments: 07/16/2011 09:33 - FREDDIE BECKER LPN right, 2nd repair when he was 26 Wrist (SNOMED CT 598450780) in 1992 at 18 Years. Comments: 07/16/2011 09:31 - FREDDIE BECKER LPN right wrist reconstructive surg due to broken arm Hypospadias repair (SNOMED CT 495669306) in 1977 at 14 Months.. Family history: Hypertension Father () Myocardial infarction Father () . Social history: Alcohol use: Drinks 2 servings of alcohol daily, Tobacco use: Denies, Occupation: Employed, Family/social situation: . Physical Examination Vital Signs: Vital Signs 08/30/2014 14:16 CDT Temperature Core 36.9 DegC Apical Heart Rate 48 /min <LLOW Respiratory Rate 18 /min SpO2 100 % Systolic Blood Pressure 140 mmHg Diastolic Blood Pressure 86 mmHg Mean Arterial Pressure 104 mmHg BP Location Left upper , Measurements 08/30/2014 14:16 CDT Height 174 cm Dosing Weight 72.00 kg NA Estimated Weight 72 kg , SpO2 08/30/2014 14:16 CDT SpO2 100 % . General: Alert and no acute distress. Skin: Warm, dry and intact. Head: Normocephalic and atraumatic. Neck: Supple and trachea midline. Eye: Pupils are equal, round and reactive to light, extraocular movements are intact and normal conjunctiva. Ears, nose, mouth and throat: Tympanic membranes clear, oral mucosa moist and no pharyngeal erythemaor exudate. Cardiovascular: No murmur, No edema, Bradycardia, S1 and S2. Respiratory: Lungs are clear to auscultation and respirations are non-labored. Gastrointestinal: Soft, Nontender, Non distended and Normal bowel sounds. Musculoskeletal: Normal ROM. normal strength. Neurological: Level of consciousness: Appropriate for age, Cranial nerves II - XII: Intact, Motor strength: Equal bilaterally, Speech: Normal and Gait: Normal. Psychiatric: Cooperative. Medical Decision Making OrdersLaunch Orders Laboratory: CBC (includes Auto Differential) (Order Processing): Stat, 08/30/2014 14:53 CDT, Once Comprehensive Metabolic Panel (Order Processing): Stat, 08/30/2014 14:53 CDT, Once Patient Care: ED Vertigo (Order Processing) Cardiac Monitoring (Order Processing): 08/30/2014 14:52 CDT Vital Signs q 15 Minutes - ED (Order Processing): 08/30/2014 14:52 CDT Radiology: CT Head w/o contrast (Order Processing): 08/30/2014 14:53 CDT, Dizziness, Stat, Patient Bed, Once, 08/30/2014 14:53 CDT, [facility] ED ED: Oxygen - ED (Order Processing): 08/30/2014 14:53 CDT, Once, Stat, 08/30/2014 14:53 CDT, PRN to keep oxygen saturation above 95%.. monitoring manager:Sinus Bradycardia. Results review:Lab results : Lab View 08/30/2014 15:04 CDT Hgb 14.4 g/dL Hct 42.8 % WBC 3.3 x10(9)/L LOW RBC 4.63 x10(12)/L MCV 92.4 fL RDW 13.4 % Platelet 182 x10(9)/L Neutro Absolute 1.85 10(9)/L Lymph Absolute 0.99 x10(9)/L Taney Absolute 0.40 x10(9)/L Eos Absolute 0.05 x10(9)/L Baso Absolute 0.01 x10(9)/L Differential? Auto Sodium Lvl 138.4 mmol/L Potassium Lvl 4.1 mmol/L Chloride 101 mmol/L CO2 27.6 mmol/L AGAP 14 mmol/L Alkaline Phosphatase 46 U/L Glucose Lvl 79 mg/dL Creatinine 1.01 mg/dL EGFR (MDRD) >60 mL/min/1.73m2 EGFR (MDRD) >60 mL/min/1.73m2 BUN 23 mg/dL HI Calcium Lvl 9.7 mg/dL Protein Total 7.3 g/dL Albumin Lvl 4.6 g/dL AST 28 U/L ALT 31 U/L Bili Total 0.4 mg/dL 08/30/2014 15:04 CDT TSH 2.27 mcIU/mL . Head Computed Tomography:Reason For Exam Dizziness Report 30-Aug-2014 15:22:00 Exam: CT Head wo Indications: Dizziness 30-Aug-2014 15:41 CA EXAM: CT scan of the Head without IV contrast COMPARISON: None IMPRESSION: Cerebellar volume loss, more advanced than expected given patient's age FINDINGS: There are visible cerebellar folia consistent with cerebellar volume loss, greater than expected for the patient's age. Clinical correlation is recommended, and if indicated MRI would be more sensitive for evaluation. Otherwise, there is no evidence of intracranial hemorrhage, mass effect, or acute focal infarct. John Anguiano MD [phone] 30-Aug-2014 15:41 Anali Bobby MD. [phone] 30-Aug-2014 15:41 . Impression and Plan Diagnosis Vertigo NOS (Discharge, Medical) Plan Condition: Stable. Disposition: Discharged: to home. Patient was given the following educational materials: DIZZINESS, Unk Cause. Follow up with: Referral will be placed for neurology and an MRI of your brain. Within As Soon As Possible; VIDHI DASH Within As Needed. Counseled: Patient, Family, Regarding diagnosis, Regarding diagnostic results, Regarding treatment plan, Regarding prescription, Patient indicated understanding of instructions. Notes: Obtained CT scan which showed nonspecific volume loss in cerebellum. Will arrange for MRI andneurology f/u. 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 Electronically Signed By: NICOLE WOLFE MD On: 08/30/2014 09:32 PM Modified by and Electronically Signed by: NICOLE WOLFE MD On: 08/30/2014 09:32 PM Source: [email or web address] Document Id: [id number]} documented in this encounter ED Notes Katelynn Bolanos R.N. - 08/30/2014 5:22 PM CDT ED Disposition Summary ED Disposition Summary Entered On: 08/30/2014 17:22 CDT Performed On: 08/30/2014 17:22 CDT by KATELYNN BOLANOS RN ED Disposition Summary Accompanied By : Spouse Mode of Discharge : Ambulatory Transportation : Private vehicle Discharge From ED With : Home Med List Printed Discharge Instructions Given to Patient : Yes Patient Status at Discharge from ED : Improved KATELYNN BOLANOS RN - 08/30/2014 17:22 CDT Source: [email or web address] Document Id: [id number] CDT!8 Katelynn Bolanos R.N. - 08/30/2014 5:22 PM CDT ED Pain Assessment ED Pain Assessment Entered On: 08/30/2014 17:22 CDT Performed On: 08/30/2014 17:22 CDT by KATELYNN BOLANOS RN Pain Assessment Pain Symptoms : No KATELYNN BOLANOS RN - 08/30/2014 17:22 CDT Source: [email or web address] Document Id: [id number] CDT!3 Katelynn Bolanos R.N. - 08/30/2014 5:09 PM CDT ED Nurse Reassess ED Nurse Reassess Entered On: 08/30/2014 17:09 CDT Performed On: 08/30/2014 17:09 CDT by KATELYNN BOLANOS RN Pain Assessment Pain Symptoms : No KATELYNN BOLANOS RN - 08/30/2014 17:09 CDT Source: [email or web address] Document Id: [id number] CDT!3 Katelynn Bolanos R.N. - 08/30/2014 3:37 PM CDT ED Nurse Reassess ED Nurse Reassess Entered On: 08/30/2014 15:37 CDT Performed On: 08/30/2014 15:37 CDT by KATELYNN BOLANOS RN Pain Assessment Pain Symptoms : No KATELYNN BOLANOS RN - 08/30/2014 15:37 CDT Source: [email or web address] Document Id: [id number] CDT!3 Katelynn Bolanos R.N. - 08/30/2014 2:20 PM CDT ED Primary Assessment Document Has Been Updated ED Primary Assessment Entered On: 08/30/2014 14:22 CDT Performed On: 08/30/2014 14:20 CDT by KATELYNN BOLANOS RN Reason For Visit (As Of: 08/30/2014 14:22:15 CDT) Problems(Active) Acne NOS (ICD-9-CM :706.1 ) Name of Problem: Acne NOS ; Onset Date: 2006 ; Recorder: FREDDIE BECKER LPN; Confirmation: Confirmed ; Classification: Medical ; Code: 706.1 ; Contributor System: PowerChart ; Last Updated: 07/16/2011 10:02 CDT ; Life Cycle Date: 07/16/2011 ; Life Cycle Status: Active ; Responsible Provider: FREDDIE BECKER LPN; Vocabulary: ICD-9-CM ; Comments: 07/16/2011 9:39 - FREDDIE BECKER LPN date of onset unknown Hyperlipidemia NOS (ICD-9-CM :272.4 ) Name of Problem: Hyperlipidemia NOS ; Recorder: APARNA AVERY RN; Confirmation: Confirmed ; Classification: Nursing ; Code: 272.4 ; Contributor System: PowerChart ; Last Updated: 11/23/2013 11:22 GROCERY BAGGER ; Life Cycle Date: 11/23/2013 ; Life Cycle Status: Active ; Responsible Provider: APARNA AVERY RN; Vocabulary: ICD-9-CM ; Comments: 11/23/2013 11:22 - APARNA AVERY RN unknown onset Hypertension (ICD-9-CM :401.9 ) Name of Problem: Hypertension ; Onset Date: 2006 ; Recorder: FREDDIE BECKER LPN; Confirmation: Confirmed ; Classification: Nursing ; Code: 401.9 ; Contributor System: PowerChart ; Last Updated: 07/16/2011 10:03 CDT ; Life Cycle Date: 07/16/2011 ; Life Cycle Status: Active ; Responsible Provider: FREDDIE BECKER LPN; Vocabulary: ICD-9-CM ; Comments: 07/16/2011 9:37 -FREDDIE BECKER LPN date of onset unknown Seasonal allergic rhinitis (ICD-9-CM :477.9 ) Name of Problem: Seasonal allergic rhinitis ; Onset Date: 2006 ; Recorder: FREDDIE BECKER LPN; Confirmation: Confirmed ; Classification: Nursing ; Code: 477.9 ; Contributor System: PowerChart ; Last Updated: 07/16/2011 10:03 CDT ; Life Cycle Date: 07/16/2011 ; Life Cycle Status: Active ; Responsible Provider: FREDDIE BECKER LPN; Vocabulary: ICD-9-CM ;Comments: 07/16/2011 9:39 - FREDDIE BECKER LPN date of onset unknown Seborrheic dermatitis NOS (ICD-9-CM :690.10 ) Name of Problem: Seborrheic dermatitis NOS ; Recorder:VIDHI DASH NP; Confirmation: Confirmed ; Classification: Medical ; Code: 690.10 ; ContributorSystem: PowerChart ; Last Updated: 12/26/2012 10:57 GROCERY BAGGER ; Life Cycle Date: 12/26/2012 ; Life Cycle Status: Active ; Responsible Provider: VIDHI DASH NP; Vocabulary: ICD-9-CM Diagnoses(Active) Episodic recurrent vertigo Date: 08/30/2014 ; Diagnosis Type: Reason For Visit ; Confirmation: Complaint of ; Clinical Dx: Episodic recurrent vertigo ; Classification: Medical ; Clinical Service: Emergency medicine ; Code: PNED ; Probability: 0 ; Diagnosis Code: [id number] Triage Chief Complaint Description : see triage note Mode of Arrival ED : Private vehicle Track : Medical Languages : Jordanian Is Patient Female and 13-50 no hysterectomy : No Treatments Prior to Arrival : None KATELYNN BOLANOS RN - 08/30/2014 14:20 CDT Pain Assessment Pain Symptoms : No KATELYNN BOLANOS RN 08/30/2014 14:20 CDT Respiratory Airway : Patent Respirations : Unlabored Respiratory Pattern : Regular KATELYNN BOLANOS RN - 08/30/2014 14:20 CDT Cardiovascular Heart Rhythm : Regular Skin Color : Normal for ethnicity Skin Description : Dry Skin Temperature : Warm Cardiovascular Detailed Assessment : Yes Monitoring Lead : II Monitoring Lead Pit Clerk : Initiated KATELYNN BOLANOS RN 08/30/2014 14:20 CDT CV Detailed CV Patient Stated Symptoms : None Nail Bed Color : Kirby Capillary Refill : Less than 2 seconds Cardiac Rhythm : Sinus bradycardia Edema Assessment : No KATELYNN BOLANOS RN - 08/30/2014 14:20 CDT Neurological Last Well Time Known : Not applicable Level of Consciousness : Alert Orientation : Oriented x 3 Characteristics of Speech : Appropriate for age Neuro Patient Stated Symptoms : Dizziness Gait : Steady Loss of Consciousness : No KATELYNN BOLANOS RN - 08/30/2014 14:20 CDT ED Psychosocial Affect/Behavior : Calm Domestic Abuse Concerns : None KATELYNN BOLANOS RN - 08/30/2014 14:20 CDT Gastrointestinal Nutrition ED : Adequate KATELYNN BOLANOS RN - 08/30/2014 14:20 CDT Musculoskeletal Fall Prevention Education Provided : KAYKAY KATELYNN BOLANOS RN - 08/30/2014 14:20 CDT Social Habits Tobacco Use/Currently Using : No Smoking Status : Never smoker KATELYNN BOLANOS RN - 08/30/2014 14:20 CDT Tobacco Use Grid Last Use : never KATELYNN BOLANOS RN - 08/30/2014 14:20 CDT Alcohol Use Grid Alcohol Use : Yes Type : Beer, Liquor Frequency : Daily KATELYNN BOLANOS RN - 08/30/2014 14:20 CDT Recreational Drug Use Grid Drug Use : None KATELYNN BOLANOS RN - 08/30/2014 14:20 CDT Source: [facility] Brass MonkeyCHART Document Id: [id number] CDT!57 Katelynn Bolanos R.N. - 08/30/2014 2:16 PM CDT ED Triage Assessment Document Has Been Updated ED Triage Assessment Entered On: 08/30/2014 14:20 CDT Performed On: 08/30/2014 14:16 CDT by KATELYNN BOLANOS RN Reason For Visit (As Of: 08/30/2014 14:20:30 CDT) Problems(Active) Acne NOS (ICD-9-CM :706.1 ) Name of Problem: Acne NOS ; Onset Date: 2006 ; Recorder: FREDDIE BECKER LPN; Confirmation: Confirmed ; Classification: Medical ; Code: 706.1 ; Contributor System: RealSelf ; Last Updated: 07/16/2011 10:02 CDT ; Life Cycle Date: 07/16/2011 ; Life Cycle Status: Active ; Responsible Provider: FREDDIE BECKER LPN; Vocabulary: ICD-9-CM ; Comments: 07/16/2011 9:39 - FREDDIE BECKER LPN date of onset unknown Hyperlipidemia NOS (ICD-9-CM :272.4 ) Name of Problem: Hyperlipidemia NOS ; Recorder: APARNA AVERY RN; Confirmation: Confirmed ; Classification: Nursing ; Code: 272.4 ; Contributor System: RealSelf ; Last Updated: 11/23/2013 11:22 GROCERY BAGGER ; Life Cycle Date: 11/23/2013 ; Life Cycle Status: Active ; Responsible Provider: APARNA AVERY RN; Vocabulary: ICD-9-CM ; Comments: 11/23/2013 11:22 - APARNA AVERY RN unknown onset Hypertension (ICD-9-CM :401.9 ) Name of Problem: Hypertension ; Onset Date: 2006 ; Recorder: FREDDIE BECKER LPN; Confirmation: Confirmed ; Classification: Nursing ; Code: 401.9 ; Contributor System: Re-vinylChart ; Last Updated: 07/16/2011 10:03 CDT ; Life Cycle Date: 07/16/2011 ; Life Cycle Status: Active ; Responsible Provider: FREDDIE BECKER LPN; Vocabulary: ICD-9-CM ; Comments: 07/16/2011 9:37 -FREDDIE BECKER LPN date of onset unknown Seasonal allergic rhinitis (ICD-9-CM :477.9 ) Name of Problem: Seasonal allergic rhinitis ; Onset Date: 2006 ; Recorder: FREDDIE BECKER LPN; Confirmation: Confirmed ; Classification: Nursing ; Code: 477.9 ; Contributor System: Re-vinylChart ; Last Updated: 07/16/2011 10:03 CDT ; Life Cycle Date: 07/16/2011 ; Life Cycle Status: Active ; Responsible Provider: FREDDIE BECKER LPN; Vocabulary: ICD-9-CM ;Comments: 07/16/2011 9:39 - FREDDIE BECKER LPN date of onset unknown Seborrheic dermatitis NOS (ICD-9-CM :690.10 ) Name of Problem: Seborrheic dermatitis NOS ; Recorder:VIDHI DASH NP; Confirmation: Confirmed ; Classification: Medical ; Code: 690.10 ; ContributorSystem: Re-vinylChart ; Last Updated: 12/26/2012 10:57 GROCERY BAGGER ; Life Cycle Date: 12/26/2012 ; Life Cycle Status: Active ; Responsible Provider: VIDHI DASH NP; Vocabulary: ICD-9-CM Diagnoses(Active) Episodic recurrent vertigo Date: 08/30/2014 ; Diagnosis Type: Reason For Visit ; Confirmation: Complaint of ; Clinical Dx: Episodic recurrent vertigo ; Classification: Medical ; Clinical Service: Emergency medicine ; Code: PNED ; Probability: 0 ; Diagnosis Code: [id number] Triage Chief Complaint Description : 39 year old male admitted to ER with complaint of vertigo that started2 weeks ago. States its periodic in nature. States lighting seems to agrivate it. Information Given By : Patient Accompanied By : Spouse Mode of Arrival ED : Private vehicle Track : Medical Languages : Jordanian Vital Signs Assessed : Yes Is Patient Female and 13-50 no hysterectomy : No Treatments Prior to Arrival : None KATELYNN BOLANOS RN - 08/30/2014 14:16 CDT Vital Signs Temperature Core : 36.9 DegC(Converted to: 98.4 DegF) Apical Heart Rate : 48 /min (<LLOW) Respiratory Rate : 18 /min Systolic Blood Pressure : 140 mmHg Diastolic Blood Pressure : 86 mmHg NIBP Mean : 104 mmHg BP Location : Left upper extremity SpO2 : 100 % Height : 174 cm(Converted to: 5 ft 9 inch(es)) Estimated Weight : 72 kg Estimated Weight Conversion to Pounds : 158.4 lb KATELYNN BOLANOS RN - 08/30/2014 14:16 CDT Pain Assessment Pain Symptoms : No KATELYNN BOLANOS RN - 08/30/2014 14:16 CDT ED Physician Notification Time ED Physician Notification Time : 08/30/2014 14:20 CDT KATELYNN BOLANOS RN - 08/30/2014 14:16 CDT DANI DANI Level 1 : No DANI Level 2 : No DANI Level 3 : Many Vital Signs DANI : No KATELYNN BOLANOS RN - 08/30/2014 14:16 CDT DCP GENERIC CODE Tracking Acuity : 3 -Urgent Tracking Group : [facility] ED KATELYNN BOLANOS RN - 08/30/2014 14:16 CDT Source: [facility] POWERCHART Document Id: [id number] CDT!35 documented in this encounter Miscellaneous Notes Miscellaneous - Nicole Rich M.D. - 08/30/2014 9:33 PM CDT referral Document Contains Addenda Addendum by NICOLE WOLFE MD on 31 August 2014 15:14:03 CDT From: NICOLE WOLFE MD To: CONSTANTINE CAICEDO; Sent: 08/31/2014 15:14:03 CDT Subject: RE: referral THanks. Addendum by CONSTANTINE CAICEDO on 31 August 2014 14:33:11 CDT From: CONSTANTINE CAICEDO To: NICOLE WOLFE MD; Sent: 08/31/2014 14:33:11 CDT Subject: RE: referral Referral sent to [facility] scheduling staff to contact patient. From: NICOLE WOLFE MD To: GREGG HENDRIX; Sent: 08/30/2014 21:33:35 CDT Subject: referral Referral Request Date: 08/30/2014 Provider: Nicole Wolfe Where Referral is to be made: [facility] Type of Referral/Department: Neurology- Dr. Kimble Specific Clinical Question: Intermittent vertigo over past 2 weeks. Pertinent History: _ Best Appointment Days to Avoid: Best Time of day: Date/Time of appointment made: Sign off: Source: [facility] POWERCHART Document Id: [id number] Electronically signed by Conversion, [facility] Transitions Rn Care Coordinator [id number] at 04/16/2017 4:12 AM CDT Miscellaneous - Katelynn Bolanos RCieraN. - 08/30/2014 5:22 PM CDT Valuables/Belongings Valuables/Belongings Entered On: 08/30/2014 17:22 CDT Performed On: 08/30/2014 17:22 CDT by KATELYNN BOLANOS RN Valuables/Belongings Belongings Sent Home With : patient KATELYNN BOLANOS RN - 08/30/2014 17:22 CDT Source: [facility] Viveve Document Id: [id number] CDT!3 Miscellaneous - Katelynn Bolnaos RDontae - 08/30/2014 1:53 PM CDT Facility Charge Ticket 2.0 11.0 DX Facility Charge Ticket 2.0 11.0 DX Entered On: 08/30/2014 17:22 CDT Performed On: 08/30/2014 13:53 CDT by KATELYNN BOLANOS RN Facility Charge Ticket 2.0 11.0 DX ED Other Charges : Standard ED Encounter TVL Level Translated RTF : Episodic recurrent vertigo TVL:3 TVL Level for Facility Charge Ticket : Level 3 Arrival Mode Calc : 1 Mode of Arrival ED : Private vehicle [facility] Mode of Arrival Interpreted : Standard [facility] Process Management : None Order Management RTF : Laboratory CBC (includes Auto Differential),08/30/14 14:53,NICOLE WOLFE MD Completed Comprehensive Metabolic Panel,08/30/14 14:53,NICOLE WOLFE MD Completed TSH,08/30/14 14:58,NICOLE WOLFE MD Completed Automated Diff-5 Part,08/30/14 15:04,NICOLE WOLFE MD Completed Misc Lab Test,08/30/14 17:17,NICOLE WOLFE MD Ordered EKG / Respiratory / Ancillary Oxygen - ED,08/30/14 14:53,NICOLE WOLFE MD Ordered CT / MRI / Ultrasound CT Head w/o contrast,08/30/14 14:53,NICOLE WOLFE MD Completed [facility] Order Management : CT/MRI/Ultrasound, EKG, RT, Ancillary Services, Lab tests 30 Minutes Critical Care : No Nursing Notes RTF : Triage Forms ED Triage Assessment,08/30/14 14:16,KATELYNN BOLANOS RN Nursing Notes ED Primary Assessment,08/30/14 14:20,KATELYNN BOLANOS ROUTE AGENT Nurse Reassess,08/30/14 17:09,KATELYNN BOLANOS ROUTE AGENT Nurse Reassess,08/30/14 15:37,KATELYNN BOLANOS ROUTE AGENT Pain Assessment,08/30/14 17:22,KATELYNN BOLANOS RN [facility] Nursing Assessment : Triage and 1-2 nursing assessments [facility] Disposition : Discharge [facility] Total Points with Diagnosis Control : 9 [facility] Visit Level : 20036 Level 4 Treatments Prior to Arrival : None KATELYNN BOLANOS RN - 08/30/2014 17:22 CDT Source: [facility] POWERCHART Document Id: [id number] CDT!18 documented in this encounter Plan of Treatment Not on filedocumented as of this encounter Procedures Procedure Name Priority Date/Time Associated Comments Diagnosis MISCELLANEOUS SENT OUT Routine 08/30/2014 5:20 PM Results for this LAB TEST CDT procedure are i n the results section. AUTOMATED Routine 08/30/2014 3:04 PM Results f or this DIFFERENTIAL, B CDT procedure ar e in the results section. CBC WITH DIFFERENTIAL, Routine 08/30/2014 3:04 PM Results for this B CDT procedure are i n the results section. COMPREHENSIVE Routine 08/30/2014 3:04 PM Results for this METABOLIC PANEL, S/P CDT procedu re are in the results section. THYROID-STIMULATING Routine 08/30/2014 3:04 PM Re sults for this HORMONE-SENSITIVE CDT procedure are in (S-TSH) the results section. documented in this encounter Results Miscellaneous Lab Test, Non-Tissue (08/30/2014 5:20 PM CDT) [facility] gist Method Time Signature HXTest to be Vasc panel POWERCHART Ordered HXMisc Result see scanned POWERCHART RPT HXMisc MML POWERCHART Reference Lab Test Code HXMisc blood POWERCHART Specimen Source Specimen (Source) Anatomical Collection Method Collection Time Re ceived Time Location / / Volume Laterality Blood 08/30/2014 5:20 PM CDT Nicole De La Paz M.D. LAB MISC ORDERABLES Performing Organization Address City/State/ZIP Code Phon e Number POWERCHART Automated Differential (08/30/2014 3:04 PM CDT) P athologist Signature Absolute 1.85 1.70 - POWERCHART Neutrophils 7.00 109L Lymphocytes 0.99 0.90 - POWERCHART 2.90 X109L Monocytes 0.40 0.30 - POWERCHART 0.90 X109L Eosinophils 0.05 0.05 - POWERCHART 0.50 X109L Absolute 0.01 0.00 - POWERCHART Basophil 0.30 X109L Specimen Anatomical Collection Method Collection Time Receive d Time (Source) Location / / Volume Laterality Blood 08/30/2014 3:04 PM 4 3:04 CDT PM CDT Nicole De La Paz M.D. LAB BLOOD ADD-ON Performing Organization Address City/[facility] Code Phon e Number POWERCHART (ABNORMAL) CBC with Differential (08/30/2014 3:04 PM CDT) Analysis Performed At Patho logist Time Signature Leukocytes 3.3 (L) 3.5 - 10.5 POWERCHART X109L Erythrocytes 4.63 4.32 - POWERCHART 5.72 M6901V Hemoglobin 14.4 13.5 - POWERCHART 17.5 GDL Hematocrit 42.8 38.8 - POWERCHART 50.0 MCV 92.4 81.0 - POWERCHART 95.0 FL HX RDW 13.4 11.8 - POWERCHART 15.6 Platelet Count 182 150 - 450 POWERCHART X109L HXDifferential? Auto POWERCHART Specimen (Source) Anatomical Collection Method Collection Time Re ceived Time Location / / Volume Laterality Blood 08/30/2014 3:04 PM CDT Nicole De La Paz M.D. LAB BLOOD ADD-ON Performing Organization Address City/[facility]/ZIP Code Phon e Number POWERCHART (ABNORMAL) CMP (Comprehensive Metabolic Panel) (08/30/2014 3:04 PM CDT) Patholo gist Method Time Signature Anion Gap 14 10 - 20 POWERCHART MMOLL Alkaline 46 45 - 115 POWERCHART Phosphatase, S UL Alanine 31 15 - 37 POWERCHART Amniotransferase, LD UL Aspartate 28 12 - 31 POWERCHART Aminotransferase UL (AST), S Bilirubin, Total, S 0.4 0.1 - 1.0 POWERCHART MGDL BUN (Blood Urea 23 (H) 7 - 18 POWERCHART Nitrogen), S MGDL Chloride, S 101 98 - 107 POWERCHART MMOLL CO2 Total 27.6 23.0 - POWERCHART 29.0 MMOLL Creatinine 1.01 0.60 - POWERCHART 1.30 MGDL Total Protein, S 7.3 6.3 - 7.9 POWERCHART GDL Glucose 79 70 - 139 POWERCHART MGDL Calcium, Total, S 9.7 8.6 - POWERCHART 10.0 MGDL Sodium, S 138.4 135.0 - POWERCHART 145.0 MMOLL Potassium, S 4.1 3.6 - 4.8 POWERCHART MMOLL Albumin, S 4.6 3.5 - 5.0 POWERCHART GDL HXeGFR (MDRD) >60 >=60 POWERCHART [id number] 2 eGFR Black/ >60 >=60 POWERCHART [place] [id number] 2 Specimen (Source) Anatomical Collection Method Collection Time Re ceived Time Location / / Volume Laterality Blood 08/30/2014 3:04 PM CDT Nicole De La Paz M.D. LAB BLOOD ADD-ON Performing Organization Address City/State/ZIP Code Phon e Number POWERCHART Thyroid-Stimulating Hormone-Sensitive (s-TSH) (08/30/2014 3:04 PM CDT) P athologist Signature TSH 2.27 0.30 - 5.00 POWERCHART (Thyrotropin) MCIUML Specimen (Source) Anatomical Collection Method Collection Time Re ceived Time Location / / Volume Laterality Blood 08/30/2014 3:04 PM CDT Nicole De La Paz M.D. LAB BLOOD ADD-ON Performing Organization Address City/State/ZIP Code Phon e Number POWERCHART documented in this encounter Visit Diagnoses Not on filedocumented in this encounter
--- OUTSIDE RECORDS SUMMARY | 2022-07-31 12:33 | XMS_ITS | Encounter Summary ---
:1975 Author Organization [facility] Address [address] [place] [address] Care Team Providers Name Role Phone Unavailable Primary Care Provider Unavailable Encounter Details Date Type Department Care Team Description 12/21/2013 Hospital Encounter [facility] Josias Patterson NCieraPCiera [address] [place] [address] (Wo rk) Social History Tobacco Use Types Packs/Day Years Used Date Smoking Tobacco: Never Assessed Sex Assigned at Date Recorded Male 07/27/2022 1:15 PM CDT documented as of this encounter Miscellaneous Notes Miscellaneous - Ele Patterson N.P. - 12/24/2013 5:28 PM CST Normal Results Letter 24 December 2013 MARKO JONES [address] [facility] [address] Dear Maryam GONSALEZ! Hope you are doing well! Below are the results of your labs. Your ALT (liver enzyme) is elevated but not high enough to warrant discontinuation of your medication minocycline. We also rechecked your cholesterol. Your LDL has improved since we last checked it almost a year ago. Your HDL is good as well. At this time I would recommend continued monitoring of your cholesterol annually based on your family history as well as continued lifestyle management to keep your cholesterol levels stable. Please review your results and let me know any questions you may have. Take care! Result Name Current Result Previous Result Normal Range ALT (U/L) (H) 64 12/21/2013 21 03/27/2013 (H) 52 12/26/2012 15 - 37 Cholesterol (mg/dL) (H) 219 12/21/2013 200 01/16/2013 0 - 200 Trig (mg/dL) (H) 168 12/21/2013 73 01/16/2013 9 - 150 HDL (mg/dL) 58 12/21/2013 52 01/16/2013 35 - 60 LDL Calculated (mg/dL) 127 12/21/2013 (H) 134 01/16/2013 100 - 129 Chol/HDL Ratio 4 12/21/2013 4 01/16/2013 4 07/16/2011 Sincerely, ELE PATTERSON [address] [place] [address] Electronic Signature Electronically Signed By: ELE PATTERSON NP On: 24 December 2013 This document has images extracted. Source: [facility] POWERCHART Document Id: [id number] Electronically signed by Conversion, [facility] Flat Lock Machine Operator [id number] at 04/16/2017 4:11 PM CDT documented in this encounter Plan of Treatment Not on filedocumented as of this encounter Procedures Procedure Name Priority Date/Time Associated Comments Diagnosis LIPID PANEL, S Routine 12/21/2013 8:48 Results fo r this AM RAILCAR CARPENTER procedure are i n the results section. ALANINE AMINOTRANSFERASE Routine 12/21/2013 8:48 Results for this (ALT), S/P AM RAILCAR CARPENTER procedure are i n the results section. documented in this encounter Results (ABNORMAL) ALT (Alanine Aminotransferase) (12/21/2013 8:48 AM RAILCAR CARPENTER) athologist Signature Alanine 64 (H) 15 - 37 UL POWERCHART Amniotransferas e, LD Specimen (Source) Anatomical Collection Method Collection Time Re ceived Time Location / / Volume Laterality Blood 12/21/2013 8:48 AM RAILCAR CARPENTER Ele Patterson N.P. LAB BLOOD ADD-ON Performing Organization Address City/State/ZIP Code Phon e Number POWERCHART (ABNORMAL) Lipid Panel (12/21/2013 8:48 AM RAILCAR CARPENTER) athologist Signature Cholesterol, 219 (H) 0 - 200 POWERCHART Total MGDL Comment: <200 mg/dL Desirable 200-239 mg/dL Borderline High >239 mg/dL High HX HDL 58 35 - 60 MGDL POWERCHART Comment: > 60 mg/dL Desirable 40 ? 60 mg/dL Low Risk <40 mg/dL Undesirable Triglycerides 168 (H) 9 - 150 MGDL POWERCHART Comment: <150 mg/dL Desirable 150-199 mg/dL Borderline High 200-499 mg/dL High > 499 Very High Calculated LDL 127 100 - 129 MGDL POWERCHART Total Cholesterol/HDL Ratio 4 PO WERCHART Specimen (Source) Anatomical Collection Method Collection Time Re ceived Time Location / / Volume Laterality Blood 12/21/2013 8:48 AM RAILCAR CARPENTER Ele Patterson N.P. LAB BLOOD ADD-ON Performing Organization Address City/State/ZIP Code Phon e Number POWERCHART documented in this encounter Visit Diagnoses Not on filedocumented in this encounter
--- OUTSIDE RECORDS SUMMARY | 2022-07-31 12:33 | XMS_ITS | Encounter Summary ---
:1975 Author Organization [facility] Address [address] [place] [address] Care Team Providers Name Role Phone Unavailable Primary Care Provider Unavailable Encounter Details Date Type Department Care Team Description 03/27/2013 Hospital Encounter HX [facility] Josias Dash, N.P. [address] [place] [address] (Wo rk) Social History Tobacco Use Types Packs/Day Years Used Date Smoking Tobacco: Never Assessed Sex Assigned at Date Recorded Male 07/27/2022 1:15 PM CDT documented as of this encounter Miscellaneous Notes Miscellaneous - Ele Dash, N.P. - 03/27/2013 11:17 AM CDT Normal Results Letter 27 Mar 2013 MARKO JONES [address] [place] [address] [id number] Dear MARKO JONES, I am pleased to report that your results from the following diagnostic test(s) are normal. Let me know if you have any questions. Have a great summer! Take careEmily Result Name Current Result Previous Result Normal Range AST (U/L) 24 03/27/2013 (H) 36 12/26/2012 12 - 31 ALT (U/L) 21 03/27/2013 (H) 52 12/26/2012 15 - 37 Sincerely, ELE DASH [address] [place] [address] Electronic Signature Electronically Signed By: ELE DASH HEALTH TYPE TECHNICIAN On: 27 Mar 2013 This document has images extracted. Source: [facility] POWERCHART Document Id: [id number] Electronically signed by Ishaan [facility] Satellite Specialist [id number] at 04/17/2017 5:27 AM CDT documented in this encounter Plan of Treatment Not on filedocumented as of this encounter Procedures Procedure Name Priority Date/Time Associated Comments Diagnosis ALANINE AMINOTRANSFERASE Routine 03/27/2013 8:30 Results for this (ALT), S/P AM CDT procedure are i n the results section. ASPARTATE Routine 03/27/2013 8:30 Results for this AMINOTRANSFERASE (AST), AM CDT proc edure are in S/P the results section. documented in this encounter Results ALT (Alanine Aminotransferase) (03/27/2013 8:30 AM CDT) P athologist Signature Alanine 21 15 - 37 UL POWERCHART Amniotransferas e, LD Specimen (Source) Anatomical Collection Method Collection Time Re ceived Time Location / / Volume Laterality Blood 03/27/2013 8:30 AM CDT Ele Dash N.P. LAB BLOOD ADD-ON Performing Organization Address City/State/ZIP Code Phon e Number POWERCHART AST (Aspartate Aminotransferase) (03/27/2013 8:30 AM CDT) Patholo gist Method Time Signature Aspartate 24 12 - 31 POWERCHART Aminotransferase UL (AST), S Specimen (Source) Anatomical Collection Method Collection Time Re ceived Time Location / / Volume Laterality Blood 03/27/2013 8:30 AM CDT Ele Dash N.P. LAB BLOOD ADD-ON Performing Organization Address City/State/ZIP Code Phon e Number POWERCHART documented in this encounter Visit Diagnoses Not on filedocumented in this encounter
--- OUTSIDE RECORDS SUMMARY | 2022-07-31 12:33 | XMS_ITS | Encounter Summary ---
:1975 Author Organization [facility] Address [address] [place] [address] Care Team Providers Name Role Phone Unavailable Primary Care Provider Unavailable Encounter Details Date Type Department Care Team Description 07/21/2013 Hospital Encounter HX [facility] Stalin Jung M.D. [address] [place] [phone] (Wo rk) Social History Tobacco Use Types Packs/Day Years Used Date Smoking Tobacco: Never Assessed Sex Assigned at Date Recorded Male 07/27/2022 1:15 PM CDT documented as of this encounter Last Filed Vital Signs Vital Sign Reading Time Taken Comments Blood Pressure 106/60 07/21/2013 3:12 PM CDT Pulse 51 07/21/2013 3:12 PM CDT Temperature - - Respiratory Rate 16 07/21/2013 3:12 PM CDT Oxygen Saturation - - Inhaled Oxygen Concentration - - Weight 74 kg (163 lb 2.3 oz) 07/21/2013 3:12 PM CDT Height - - Body Mass Index 24 12/26/2012 10:09 AM BULB BRANDER documented in this encounter H&P Notes Bj Jung M.D. - 07/21/2013 3:04 PM CDT [id number] HISTORY OF PRESENT ILLNESS 3 days of excruciating right lower back pain. He is otherwise healthy. It radiates down his leg along his thigh to his knee but not below it. He was doing a lot of bending but did not hear a pop and does not have any past history of significant back pain or lower lumbar disk disease. PAST MEDICAL/SURGICAL HISTORY He has a negative past medical history. ALLERGIES No allergies. CURRENT MEDICATIONS No medicines. SOCIAL HISTORY He drinks coffee. SYSTEMS REVIEW Review of systems is only significant for his back pain on 10-point review. PHYSICAL EXAMINATION VITAL SIGNS: Temperature 36.3, 51 beats, 16 respirations, 106/60. MUSCULOSKELETAL: Negative straight leg raises left and right. Tender to palpation with spasm palpable in the right lower lumbar area. No muscle atrophy. IMPRESSION/REPORT/PLAN Lower lumbar strain without evidence for disk disease or sciatica. Vicodin prescribed and ibuprofen recommended, ice, recheck if not improved. Advised regarding physical therapy. Counseled 15 per 25 minutes session regarding exercises that he can do and referenced literature for him to investigate. Bj Jung M.D./kirsten Electronically Signed By: BJ JUNG MD On: 07/26/2013 10:09 AM Source: [facility] MHSDOLBEYNONRADSYS Document Id: [id number] documented in this encounter Miscellaneous Notes Miscellaneous - Jaya Richardson L.P.N. - 10/13/2013 10:19 AM CST Med Management Document Contains Addenda Addendum by SUKH LI III, MD on 14 October 2013 14:10:01 BULB BRANDER From: SUKH LI III, MD To: JAYA RICHARDSON LPN; Sent: 10/14/2013 14:10:00 BULB BRANDER Subject: RE:Med Management Approved Order:minocycline (minocycline 100 mg oral tablet) 1 tab(s) PO Daily Qty: 30 tab(s) Refills: 5 Substitutions Allowed Route To Pharmacy - [facility] [id number] Signed by SUKH LI III, MD 10/14/2013 14:09:55 From: JAYA RICHARDSON LPN To: SUKH LI III, MD; JAYA RICHARDSON LPN; Cc: RADHA KUHN V; Sent: 10/13/2013 10:19:32 BULB BRANDER Subject: Med Management On hold pending signature Order:minocycline (minocycline 100 mg oral tablet) 1 tab(s) PO Daily Qty: 30 tab(s) Refills: 5 Substitutions Allowed Route To Pharmacy [facility] [id number] Source: [facility] POWERCHART Document Id: [id number] Electronically signed by Conversion, [facility] Receiving Inspector [id number] at 04/17/2017 6:13 PM CDT Miscellaneous - Alivia Rodriguez RDontae - 08/26/2013 4:00 PM CDT Med Management Document Contains Addenda Addendum by ELE DASH NP on 27 August 2013 08:08:02 CDT From: ELE DASH NP To: ALIVIA MITCHELL RN; Sent: 08/27/2013 08:08:02 CDT Subject: RE:Med Management Approved Order:fluticasone nasal (Flonase 50 mcg/inh nasal spray) 1 spray(s) Nasal Daily Qty: 1 each Refills: 1 Substitutions Allowed Route To [facility] [id number] Signed by ELE DASH NP 08/27/2013 08:06:33 From: ALIVIA MITCHELL RN To: ELE DASH NP; Sent: 08/26/2013 16:00:13 CDT Subject: Med Management On hold pending signature Order:fluticasone nasal (Flonase 50 mcg/inh nasal spray) 1 spray(s) Nasal Daily Qty: 1 each Refills: 1 Substitutions Allowed Route To Pharmacy [facility] [address] Last filled 07/16/11 Do you want to refill? Source: [facility] POWERCHART Document Id: [id number] Electronically signed by Conversion, [facility] Receiving Inspector [id number] at 04/17/2017 6:13 PM CDT Miscellaneous - Conversion, Historical Provider Ser - 07/22/2013 10:38 AM CDT itchy from vicodin Document Contains Addenda Addendum by ELE DASH NP on 23 July 2013 09:30:02 CDT Spoke with Marko. Reports took pain medication last night and had not problems with itch. Will continue to use cautiously. Advised to follow up in clinic if back problem does not resolve. Addendum by RADHA KUHN V on 22 July 2013 14:02:47 CDT From: RADHA KUHN V To: ELE DASH NP; Sent: 07/22/2013 14:02:47 CDT Subject: FW: itchy from vicodin pt updated & will try this.Emily-pt wonders if you want to order anything else Addendum by SUKH LI III, MD on 22 July 2013 12:43:38 CDT From: SUKH LI III, MD To: RADHA KUHN V; Sent: 07/22/2013 12:43:38 CDT Subject: RE: itchy from vicodin Consider benadryl for itch. Please have patient try this and let us know. Her IMPROVEMENT DIRECTOR may address this tomorrow. It is OK to take benadryl with vicodin. From: RADHA KUHN V To: SUKH LI III, MD; Sent: 07/22/2013 10:38:16 CDT Subject: itchy from vicodin * provider for pt of Jack who was seen yesterday by Dr Jung for back pain Pt reported he took 2 vicodin last night before going to bed & became very itchy. Wants new rx for different pain med sent to [facility] in [place]. Please advise Source: [facility] POWERCHART Document Id: [id number] Miscellaneous - Bj Jung M.D. - 07/21/2013 4:19 PM CDT Ambulatory Patient Summary [facility] [address] [place] [address] Visit Information Name: MARKO JONES [facility] Number: [id number] Current Date: 07/21/2013 16:19:59 Physicians Attending Provider: BJ JUNG MD Primary Care Provider: ELE DASH NP Your Medications Here is a list of your medications. It is important to take your medications as directed. Use a pillbox or chart to help remind you to take your medications. Please let your doctor or nurse know if you have problems taking your medications. Medication/Strength Dose Route Frequency Indications/Special Instructions/Comments/Notes HYDROcodone-acetaminophen (Vicodin 5 mg-500 mg oral tablet) 1 to 2 tablets Oral every 6 hours as needed for Pain No more than 4,000mg acetaminophen/24hrs minocycline (minocycline 100 mg oral tablet) 100 mg Oral once a day desoximetasone topical (desoximetasone 0.25% topical cream) 1 christy Topical two times a day lisinopril (lisinopril 10 mg oral tablet) 10 mg Oral once a day Needs follow up for this in the next3 months *tretinoin topical (Retin A Micro Gel Pump 0.04% topical) 1 christy Topical once a day (at bedtime) AcneVulgaris fexofenadine (fexofenadine 180 mg oral tablet) 180 mg Oral once a day Seasonal allergies *fluticasone nasal (Flonase) 50 mcg Nasal once a day Seasonal Allergies melatonin (Melatonin) Oral once a day (at bedtime) desonide topical (desonide topical 0.05% ointment) 1 christy Topical once a day * You have let us know that you are not taking this medication as listed. Please talk with your primary care provider or the health care provider who prescribed the medication as soon as possible. Attention: If you have any medications at home that are not on this list, DO NOT take them until youcontact your provider for clarification. Your Allergies & Intolerances Substance Reaction Symptoms Category Comments No Known Allergies Drug Your Problem List Problem Status Onset Comments Hypertension Active 2007 07/16/11 date of onset unknown Seasonal allergic rhinitis Active 2007 07/16/11 date of onset unknown Acne NOS Active 2007 07/16/11 date of onset unknown Seborrheic dermatitis NOS Active Your Upcoming Appointments Date Time Location Reason Provider No Appointments found Your Goals/Additional instructions: Source: [facility] POWERCHART Document Id: [id number] Miscellaneous - Bj Jung M.D. - 07/21/2013 4:19 PM CDT Ambulatory Depart Summary [facility] [id number] [place] [address] Visit Information Name: MARKO JONES [facility] Number: [id number] Visit Date: 07/21/2013 16:19:58 Attending Provider: BJ JUNG MD Primary Care Provider: ELE DASH NP MARKO JONES has been given the following list of medications: Your Medications It is important to take your medications as directed. Use a pill box or chart to help remind you to take your medications. Please let your doctor or nurse know if you have problems taking your medications. Medication/Strength Dose Route Frequency Indications/Special Instructions/Comments/Notes HYDROcodone-acetaminophen (Vicodin 5 mg-500 mg oral tablet) 1 to 2 tablets Oral every 6 hours as needed for Pain No more than 4,000mg acetaminophen/24hrs minocycline (minocycline 100 mg oral tablet) 100 mg Oral once a day desoximetasone topical (desoximetasone 0.25% topical cream) 1 christy Topical two times a day lisinopril (lisinopril 10 mg oral tablet) 10 mg Oral once a day Needs follow up for this in the next3 months *tretinoin topical (Retin A Micro Gel Pump 0.04% topical) 1 christy Topical once a day (at bedtime) AcneVulgaris fexofenadine (fexofenadine 180 mg oral tablet) 180 mg Oral once a day Seasonal allergies *fluticasone nasal (Flonase) 50 mcg Nasal once a day Seasonal Allergies melatonin (Melatonin) Oral once a day (at bedtime) desonide topical (desonide topical 0.05% ointment) 1 christy Topical once a day * You have let us know that you are not taking this medication as listed. Please talk with your primary care provider or the health care provider who prescribed the medication as soon as possible. Attention: If you have any medications at home that are not on this list, DO NOT take them until youcontact your provider for clarification. Additional Information: Yes - . Source: [employer] Document Id: [id number] Miscellaneous - Marilee Archibald - 07/21/2013 3:12 PM CDT Adult Rubber Tubing Backer Intake/History Adult Rubber Tubing Backer Intake/History Entered On: 07/21/2013 15:18 CDT Performed On: 07/21/2013 15:12 CDT by MARILEE ARCHIBALD electro mechanical designer Chief Complaint : low back pain for about three days now going down right leg, has had back pain before but never like this and never seen before by a physician for it Temperature Oral : 36.3 DegC(Converted to: 97.3 DegF) Peripheral Pulse Rate : 51 /min (LOW) Respiratory Rate : 16 /min Systolic Blood Pressure : 106 mmHg Diastolic Blood Pressure : 60 mmHg NIBP Mean : 75 mmHg SpO2 : 99 % Actual Weight : 74 kg(Converted to: 163 lb 2 oz) Dosing Weight Clinic : 74 kg MARILEE ARCHIBALD RN - 07/21/2013 15:12 CDT General Info Information Given By : Patient Languages : Chinese MARILEE ARCHIBALD RN - 07/21/2013 15:12 CDT Subjective Pain Symptoms : Yes MARILEE ARCHIBALD RN - 07/21/2013 15:12 CDT Pain Pain Assessment Grid Pain 1 Location : Lower back Laterality : Right MARILEE ARCHIBALD RN - 07/21/2013 15:12 CDT Dependent Habits Tobacco Use/Currently Using : No Smoking Status : Never smoker MARILEE ARCHIBALD RN - 07/21/2013 15:12 CDT Caffeine Use Grid Caffeine Use : Current Type : Coffee Frequency : Daily MARILEE ARCHIBALD RN - 07/21/2013 15:12 CDT Source: [facility] POWERCHART Document Id: [id number] CDT!30 documented in this encounter Plan of Treatment Not on filedocumented as of this encounter Visit Diagnoses Not on filedocumented in this encounter
--- OUTSIDE RECORDS SUMMARY | 2022-07-31 12:33 | XMS_ITS | Encounter Summary ---
:1975 Author Organization [facility] Address [address] [place] [address] Care Team Providers Name Role Phone Unavailable Primary Care Provider Unavailable Encounter Details Date Type Department Care Team Description 08/30/2012 Hospital Encounter HX [facility] Jim Vela III, M.D. [id number] [place] [phone] (Wo rk) Social History Tobacco Use Types Packs/Day Years Used Date Smoking Tobacco: Never Assessed Sex Assigned at Date Recorded Male 07/27/2022 1:15 PM CDT documented as of this encounter Miscellaneous Notes Miscellaneous - Chantal Rodriguez RCieraNCiera - 11/10/2012 10:40 AM CST Med Management Document Contains Addenda Addendum by CHANTAL MITCHELL RN on 10 November 2012 12:04:59 INSTRUMENTAL TEACHER Pt notified. Addendum by ANDRES LEZAMA MD on 10 November 2012 12:02:44 INSTRUMENTAL TEACHER From: ANDRES LEZAMA MD To: CHANTAL MITCHELL RN Sent: 11/10/2012 12:02:43 INSTRUMENTAL TEACHER Subject: RE:Med Management Approved Order Order: lisinopril (lisinopril 10 mg oral tablet) 1 tab(s) PO Daily Qty: 30 tab(s) Duration: 30 day(s) Refills: 0 Substitutions Allowed Route To Pharmacy - [facility] Needs follow up for this in the next 3 months Signed by ANDRES LEZAMA MD 11/10/2012 12:02:38 From: CHANTAL MITCHELL RN To: ANDRES LEZAMA MD; CHANTAL MITCHELL RN; Sent: 11/10/2012 10:40:57 INSTRUMENTAL TEACHER Subject: Med Management Sent to you as provider. Pt is out of town. Needs refill to last til he can see Dr. Vela next month. Pt phone is [phone]. On hold pending signature Order Order: lisinopril (lisinopril 10 mg oral tablet) 1 tab(s) PO Daily Qty: 30 tab(s) Duration: 30 day(s) Refills: 0 Substitutions Allowed Route To Pharmacy - [facility] [facility] [address] Needs follow up for this in the next 1 month Source: [facility] POWERCHART Document Id: [id number] documented in this encounter Plan of Treatment Not on filedocumented as of this encounter Visit Diagnoses Not on filedocumented in this encounter
--- OUTSIDE RECORDS SUMMARY | 2022-07-31 12:33 | XMS_ITS | Encounter Summary ---
:1975 Author Organization [facility] Address [address] [place] [address] Care Team Providers Name Role Phone Unavailable Primary Care Provider Unavailable Encounter Details Date Type Department Care Team Description 01/16/2013 Hospital Encounter HX [facility] Josias Patterson, N.PCiera [address] [place] [phone] (Wo rk) Social History Tobacco Use Types Packs/Day Years Used Date Smoking Tobacco: Never Assessed Sex Assigned at Date Recorded Male 07/27/2022 1:15 PM CDT documented as of this encounter Miscellaneous Notes Miscellaneous - Chantal Rodriguez RCieraNCiera - 03/09/2013 11:22 AM CDT Med Management Document Contains Addenda Addendum by SUKH LI III, MD on 09 March 2013 18:00:01 CDT From: SUKH LI III, MD To: CHANTAL MITCHELL RN; Sent: 03/09/2013 18:00:01 CDT Subject: RE:Med Management Approved Order:minocycline (minocycline 100 mg oral tablet) 1 tab(s) PO Daily Qty: 30 tab(s) Refills: 5 Substitutions Allowed Route To Pharmacy - [facility] Signed by SUKH LI III, MD 03/09/2013 17:59:56 From: CHANTAL MITCHELL RN To: SUKH LI III, MD; Sent: 03/09/2013 11:22:14 CDT Subject: Med Management On hold pending signature Order:minocycline (minocycline 100 mg oral tablet) 1 tab(s) PO Daily Qty: 30 tab(s) Refills: 5 Substitutions Allowed Route To Pharmacy - [facility] Source: [facility] POWERCHART Document Id: [id number] Electronically signed by Conversion, [facility] Bungy Jump Master [id number] at 04/17/2017 1:17 PM CDT documented in this encounter Plan of Treatment Not on filedocumented as of this encounter Procedures Procedure Name Priority Date/Time Associated Comments Diagnosis LIPID PANEL, S Routine 01/16/2013 8:20 AM Results for this MANAGER POLICY procedure are i n the results section. LIPOPROTEIN (A), S/P Routine 01/16/2013 8:20 AM R esults for this MANAGER POLICY procedure are i n the results section. C-REACTIVE PROTEIN Routine 01/16/2013 8:20 AM Res ults for this (CRP), S/P MANAGER POLICY procedure are i n the results section. documented in this encounter Results Lipoprotein (a) (01/16/2013 8:20 AM MANAGER POLICY) athologist Signature Lp(a) <5 <=30 MGDL POWERCHART Cholesterol Comment: Test Performed by: [place] [address] Dice Spotter: Ciaran torres III, M.D. Specimen (Source) Anatomical Collection Method Collection Time Re ceived Time Location / / Volume Laterality Blood 01/16/2013 8:20 AM MANAGER POLICY Vidhi Patterson N.P. LAB BLOOD ADD-ON Performing Organization Address City/State/ZIP Code Phon e Number POWERCHART (ABNORMAL) Lipid Panel (01/16/2013 8:20 AM MANAGER POLICY) athologist Signature Cholesterol, 200 0 - 200 POWERCHART Total MGDL Comment: <200 mg/dL Desirable 200-239 mg/dL Borderline High >239 mg/dL High HX HDL 52 35 - 60 MGDL POWERCHART Comment: > 60 mg/dL Desirable 40 ? 60 mg/dL Low Risk <40 mg/dL Undesirable Triglycerides 73 9 - 150 MGDL POWERCHART Comment: <150 mg/dL Desirable 150-199 mg/dL Borderline High 200-499 mg/dL High > 499 Very High Calculated LDL 134 (H) 100 - 129 MGDL POWERCHART Total Cholesterol/HDL Ratio 4 PO WERCHART Specimen (Source) Anatomical Collection Method Collection Time Re ceived Time Location / / Volume Laterality Blood 01/16/2013 8:20 AM MANAGER POLICY Vidhi Patterson N.PCiera LAB BLOOD ADD-ON Performing Organization Address City/State/ZIP Code Phon e Number POWERCHART CRP (C-Reactive Protein) (01/16/2013 8:20 AM MANAGER POLICY) P athologist Signature C-Reactive <0.1 0.0 - 0.8 POWERCHART Protein (CRP), MGDL S Specimen (Source) Anatomical Collection Method Collection Time Re ceived Time Location / / Volume Laterality Blood 01/16/2013 8:20 AM MANAGER POLICY Vidhi Patterson N.P. LAB BLOOD ADD-ON Performing Organization Address City/State/ZIP Code Phon e Number POWERCHART documented in this encounter Visit Diagnoses Not on filedocumented in this encounter
--- OUTSIDE RECORDS SUMMARY | 2022-07-31 12:33 | XMS_ITS | Encounter Summary ---
:1975 Author Organization [facility] Address [address] [place] [address] Care Team Providers Name Role Phone Unavailable Primary Care Provider Unavailable Encounter Details Date Type Department Care Team Description 07/16/2011 Hospital Encounter [facility] Jim Vela III, M.D. [id number] [id number] (Wo rk) Social History Tobacco Use Types Packs/Day Years Used Date Smoking Tobacco: Never Assessed Sex Assigned at Date Recorded Male 07/27/2022 1:15 PM CDT documented as of this encounter Progress Notes Sukh Vela M.D. - 07/16/2011 12:00 AM CDT [id number] IMPRESSION/REPORT/PLAN 1. Acne vulgaris. 2. Screening for other cardiovascular conditions. PLAN: At this point, will start with general treatment that will include switching his soap to Safeguard soap as it has a clobetasol as a main ingredient. Will start him on some Retin A Microgel pump 0.04%. Will also start minocycline 100 mg PO q.a.m. We also discussed the possibility of doing a dry ice scrub. Currently that is not available to us but when that does become available patient states he would like to entertain that. All questions were answered and reassurance is given. He did want a cholesterol check today which is appropriate. He has not had one done before. When those results are available, will send them to him. All questions were answered and reassurance is given. CHIEF COMPLAINT/REASON FOR VISIT Acne. HISTORY OF PRESENT ILLNESS This 36-year-old male has a past medical history significant for acne vulgaris on the forehead as well as seasonal allergic rhinitis and high blood pressure. He comes in today with complaint that previous treatments he has attempted have been unsuccessful. He continues to have signs and symptoms of some mild eczema as well as open and closed comedones throughout the forehead. He normally washes his face with CeraVe soap. He has been using desonide 0.05% ointment as well as desoximetasone 0.25% cream. This in combination with some Elidel 1% topical cream twice a day has not typically improved his skin care. He has never had a peel per se. He denies other rashes on his body. SYSTEM REVIEW Pertinent positives and negatives as noted above. The remainder of the complete review of systems is negative. PAST MEDICAL HISTORY/SURGICAL HISTORY Hypertension, seasonal allergic rhinitis, and acne vulgaris. VITAL SIGNS TEMP: 36.7 degrees PULSE: 70 RESP: 16 BP: 130/84 HT: 176 cm WT: 76.3 kg PHYSICAL EXAMINATION GENERAL: patient is alert and cooperative and in no acute distress at this time. SKIN: evaluation of the skin shows open and closed comedones in various stages of healing. There is a moderate amount of erythema. This is located primarily on his forehead, a mild amount on his cheeks and mild amount on his chin. These do not appear to be follicular in nature. Hair pattern appears to be normal. Sukh Vela III, M.D. / Electronically Signed By: SUKH VELA III, MD On: 07/18/2011 05:51 pm Source: [facility] MHSDOLBEYNONRADSYS Document Id: [id number] documented in this encounter Miscellaneous Notes Miscellaneous - Sukh Vela M.D. - 07/19/2011 4:28 PM CDT Results Notification Document Contains Addenda Addendum by KAY ABURTO LPN on 20 July 2011 10:44:23 CDT Letter sent with copy of lab results. From: SUKH VELA III, MD To: KAY ABURTO Rosy GEORGE Sent: 07/19/2011 16:28:31 CDT ! Show up: 07/19/2011 16:28:00 CDT Subject: Results Notification Actions: Notify patient of results Due Date/Time: 07/19/2011 16:28:00 CDT Source: [facility] POWERCHART Document Id: [id number] Electronically signed by Conversion, [facility] Freight Broker Agent [id number] at 04/22/2017 12:09 AM CDT Miscellaneous - Sukh Vela M.D. - 07/16/2011 10:11 AM CDT Ambulatory Patient Summary [address] [address] Visit Information Name: MARKO JONES Current Date: 07/16/2011 10:11:04 Primary Care Provider: SUKH VELA III, MD Your Medications Here is a list of your medications. It is important to take your medications as directed. Use a pillbox or chart to help remind you to take your medications. Please let your doctor or nurse know if you have problems taking your medications. Medication/Strength Dose Route Frequency Indications/Special Instructions/Comments minocycline (minocycline 100 mg oral tablet) 100 mg Oral once a day Acne tretinoin topical (Retin A Micro Gel Pump 0.04% topical) 1 christy Topical once a day (at bedtime) Acne Vulgaris fexofenadine (fexofenadine 180 mg oral tablet) 180 mg Oral once a day Seasonal allergies lisinopril (lisinopril 10 mg oral tablet) 10 mg Oral once a day High Blood Pressure fluticasone nasal (Flonase) 50 mcg Nasal once a day Seasonal Allergies melatonin (Melatonin) Oral once a day (at bedtime) pimecrolimus topical (Elidel 1% topical cream) 1 christy Topical two times a day Does not work for pt. desoximetasone topical (desoximetasone topical 0.25% cream) 1 christy Topical two times a day desonide topical (desonide topical 0.05% ointment) 1 christy Topical once a day Your Allergies & Intolerances Substance Reaction Symptoms Category Comments NKA Drug Your Problem List Problem Status Onset Comments Hypertension Active 2007 date of onset unknown Seasonal allergic rhinitis Active 2007 date of onset unknown Acne NOS Active 2007 date of onset unknown Your Recommendations We want to make sure you get the tests, immunizations, and guidance you need to stay healthy. Here is a customized list of recommendations, based on information we have in your medical record. Your doctor may have additional recommendations for you, based on your personal medical history and risk factors. You can help us by calling us to make an appointment when you are due for your tests. Additional information regarding recommendations: Test/Treatment Last Done Next Due Additional Information Lipid Panel every 5 years Age 20-75 07/16/2011 Checks blood for good (HDL) and bad (LDL) cholesterol. Know your numbers, they are one indicator of your risk for heart attack and stroke. Vaccine: Tetanus every 10 years 07/16/2011 Immunization to help prevent you from getting the seriousdisease Tetanus (Lockjaw). Your Upcoming Appointments Date Time Location Reason Provider No Appointments found Your Goals/Additional instructions: Source: [facility] POWERCHART Document Id: [id number] Electronically signed by Ishaan [facility] Freight Broker Agent [id number] at 04/22/2017 12:09 AM CDT Miscellaneous - Sukh Vela M.D. - 07/16/2011 10:11 AM CDT Ambulatory Depart Summary [address] [address] Visit Information Name: MARKO JONES Current Date: 07/16/2011 10:11:02 Primary Care Provider: SUKH VELA III, MD MARKO JONES has been given the following list of medications: Your Medications It is important to take your medications as directed. Use a pill box or chart to help remind you to take your medications. Please let your doctor or nurse know if you have problems taking your medications. Medication/Strength Dose Route Frequency Indications/Special Instructions/Comments minocycline (minocycline 100 mg oral tablet) 100 mg Oral once a day Acne tretinoin topical (Retin A Micro Gel Pump 0.04% topical) 1 christy Topical once a day (at bedtime) Acne Vulgaris fexofenadine (fexofenadine 180 mg oral tablet) 180 mg Oral once a day Seasonal allergies lisinopril (lisinopril 10 mg oral tablet) 10 mg Oral once a day High Blood Pressure fluticasone nasal (Flonase) 50 mcg Nasal once a day Seasonal Allergies melatonin (Melatonin) Oral once a day (at bedtime) pimecrolimus topical (Elidel 1% topical cream) 1 christy Topical two times a day Does not work for pt. desoximetasone topical (desoximetasone topical 0.25% cream) 1 christy Topical two times a day desonide topical (desonide topical 0.05% ointment) 1 christy Topical once a day Additional Information: Yes - Current list of reconciled medications is provided and explained to the patient and/or family, guardian/caregiver. Source: [facility] POWERCHART Document Id: [id number] Electronically signed by Ishaan [facility] Freight Broker Agent [id number] at 04/22/2017 12:09 AM CDT Miscellaneous - Isamar Becker L.P.N. - 07/16/2011 9:34 AM CDT Adult Greeting Card Editor Intake/History Adult Greeting Card Editor Intake/History Entered On: 07/16/2011 9:37 CDT Performed On: 07/16/2011 9:34 CDT by ISAMAR BECKER LPN Intake Chief Complaint: Here with request for referral to [facility] for [facility]. Has been treated for acne on face.Was treated in [place] Temperature Core: 36.7C(Converted to: 98.1DegF) Peripheral Pulse Rate: 70/min Respiratory Rate: 16/min Systolic Blood Pressure: 130mmHg Diastolic Blood Pressure: 84mmHg NIBP Mean: 99mmHg BP Location: Right upper extremity Heart Rhythm: Regular Height: 176.00cm(Converted to: 5ft 9inch(es), 69.29inch(es)) Actual Weight: 76.300kg(Converted to: 168lb 3oz) Weight Source: Standing scale Dosing Weight Clinic: 76.30kg Clinic BSA: 1.93 Body Mass Index: 24.63kg/m2 ISAMAR BECKER LPN - 07/16/2011 9:34 CDT Subjective Pain Symptoms: No ISAMAR BECKER LPN - 07/16/2011 9:34 CDT Dependent Habits Tobacco Use/Currently Using: No ISAMAR BECKER LPN - 07/16/2011 9:34 CDT Caffeine Use Grid Caffeine Use: Current Type: Coffee Frequency: Daily ISAMAR BECKER LPN - 07/16/2011 9:34 CDT Allergy Allergies (Active) NKA Estimated Onset Date: Unspecified ; Created By: ISAMAR BECKER LPN; Reaction Status: Active ; Category: Drug ; Substance: NKA ; Type: Allergy ; Updated By: ISAMAR BECKER LPN; Reviewed Date: 07/16/2011 9:29 CDT Source: [facility] Document Id: [id number] CDT!26 documented in this encounter Plan of Treatment Not on filedocumented as of this encounter Visit Diagnoses Not on filedocumented in this encounter
--- OUTSIDE RECORDS SUMMARY | 2022-07-31 12:33 | XMS_ITS | Encounter Summary ---
:1975 Author Organization [facility] Address [address] [place] [address] Care Team Providers Name Role Phone Unavailable Primary Care Provider Unavailable Encounter Details Date Type Department Care Team Description 12/26/2012 Hospital Encounter HX [facility] Josias Patterson NCieraPCiera [address] [place] [address] 770 (Wo rk) Social History Tobacco Use Types Packs/Day Years Used Date Smoking Tobacco: Never Assessed Sex Assigned at Date Recorded Male 07/27/2022 1:15 PM CDT documented as of this encounter Progress Notes Ele Patterson, N.P. - 12/26/2012 9:59 AM CST [id number] CHIEF COMPLAINT/REASON FOR VISIT Sinuses. Prescription renewal. HISTORY OF PRESENT ILLNESS Eladio is a 37-year-old male who is here today with concerns about a possible sinus infection. He alsowould like refills of some of his medications. He reports that a week ago he had a cold. He states that for the first five or six days he felt pretty tough with a sinus congestion, headache, fatigue. He actually reports that over the past few days he has been getting better and he feels as he is on the mend. When he has had a sinus congestion his sinuses have been tender. He has had a little bit of cough as well. Eladio is also requesting a refill on Lisinopril which he takes for high blood pressure. He has actually been out this medication for several weeks but would like to this refilled. He does have a significant family history of cardiac disease with his dad passing away at 46 secondary to an NH. His dad also hypertension. Eladio's last lipid profile done approximately 2 years ago. He does not smoke. He is very physically active. CURRENT MEDICATIONS NEW PRESCRIPTIONS TODAY Includes: Augmentin 875 mg., 1 tablet twice daily times 10 days. This was written as a safety net prescription. RENEWALS PROVIDED Desoximetasone, 0.25% topical cream. Refill on Lisinopril 10 mg once daily. ALLERGIES No known drug allergies PAST MEDICAL HISTORY 1. Acne. 2. Hypertension. 3. Allergic rhinitis. 4. Seborrheic dermatitis. SOCIAL HISTORY Eladio is . He has a 5-year-old son. 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 He is not smoke. VITAL SIGNS Temperature: 36.2-degrees Centigrade. Pulse: 57. Respirations: 18. Blood pressure: 142/82. PHYSICAL EXAMINATION IN GENERAL: Eladio alert, oriented times 3, appears in no acute distress. HEENT: Head is normocephalic, atraumatic. Bilateral TMs are shiny story intact with no erythema or effusion present. Nares are patent. No sinus tenderness. Oropharynx is without erythema or swelling. NECK: Is supple with no lymphadenopathy. HEART: Heart rate is regular, S-1, S-2 is present. No murmur or rub. No carotid bruits. LUNGS: Clear with the exception of a very slight expiratory wheeze in the right upper lobe. DIAGNOSTICS. CMP. Kidney function is normal. AST slightly elevated at 36. ALT at 52. IMPRESSION/REPORT/PLAN 1. Sinusitis. 2. Hypertension 3. Seborrheic dermatitis. 4. Family history of coronary artery disease. PLAN 1. Regards to his sinuses. I agreed with Eladio that it seems like his symptoms are improving. I did write him a prescription for Augmentin that he only use if his symptoms are worsening. Purpose, use and side effects of this medication were covered. 2. Lisinopril was renewed at it's current dose. His blood pressure had been well controlled in the past and Iam has been out of the medicine for the past 3 weeks which probably is reflective in his blood pressure reading today. 3. Refills were provided on his Desoximetasone cream that he uses for seborrheic dermatitis. 4. I will place some orders so that Eladio can return fasting to have his cholesterol screened. We also discussed having an advance lipid profile and a CRP and depending on these values a possible consultation with Cardiology due to his dad's family history of coronary artery disease as such a young age. Eladio was agreeable to this and will return to have his fasting lab work done. We will also discuss his elevated liver function and any further follow-up that we would require for this. PATIENT EDU #1 Patient Education Ready to learn No apparent learning barriers were identified Learning preferences include listening Explained diagnosis and treatment plan Patient/Child/Caregiver expressed understanding of the content. Malka Moy/al DOCID: [id number] Electronically Signed By: ELE PATTERSON NP On: 01/01/2013 04:17 PM Source: [facility] KUNSDOLBEYNCHEMO Document Id: [id number] GRATION ATTORNEY documented in this encounter Miscellaneous Notes Miscellaneous - Ele Patterson NGe - 12/29/2012 10:10 AM CST lab results Document Contains Addenda Addendum by CHRISTI WILKERSON LPN on 29 December 2012 11:48:46 IMMIGRATION ATTORNEY letter and lab results sent From: ELE PATTERSON NP To: CHRISTI WILKERSON LPN; Sent: 12/29/2012 10:10:00 IMMIGRATION ATTORNEY Subject: lab results Please send Cyndee letter with the following message and his most recent lab results (CMP). Eladio-- Enclosed is a copy of your most recent labs. Your labs for the most part look good. Your liver enzymes are a bit elevated-AST and ALT. I think this is due to your minocycline. They are only mildly elevated and do not warrant discontinuation of the minocycline at this time. I would recommend rechecking these values in about 3 months. If they are still elevated we can investigate further. Please let me know if you have any questions. Emily Montez Source: [facility] virocyt Document Id: [id number] Electronically signed by Ishaan [facility] Geographic Information System Surveyor [id number] at 04/17/2017 8:16 PM CDT documented in this encounter Plan of Treatment Not on filedocumented as of this encounter Procedures Procedure Name Priority Date/Time Associated Comments Diagnosis COMPREHENSIVE Routine 12/26/2012 10:05 Results fo r this METABOLIC PANEL, S/P AM IMMIGRATION ATTORNEY procedu re are in the results section. documented in this encounter Results (ABNORMAL) CMP (Comprehensive Metabolic Panel) (12/26/2012 10:05 AM IMMIGRATION ATTORNEY) [facility] gist Method Time Signature Alanine 52 (H) 15 - 37 POWERCHART Amniotransferase, LD UL Albumin, S 4.5 3.5 - 5.0 POWERCHART GDL Alkaline 42 (L) 45 - 115 POWERCHART Phosphatase, S UL Aspartate 36 (H) 12 - 31 POWERCHART Aminotransferase UL (AST), S Sodium, S 136.8 135.0 - POWERCHART 145.0 MMOLL Potassium, S 4.4 3.6 - 4.8 POWERCHART MMOLL Chloride, S 99 (L) 100 - 108 POWERCHART MMOLL CO2 Total 30.6 (H) 23.0 - POWERCHART 29.0 MMOLL BUN (Blood Urea 19 (H) 7 - 18 POWERCHART Nitrogen), S MGDL Creatinine 0.93 0.60 - POWERCHART 1.30 MGDL Calcium, Total, S 9.8 8.5 - POWERCHART 10.1 MGDL Anion Gap 7 (L) 10 - 20 POWERCHART MMOLL HXeGFR (MDRD) >60 >=60 POWERCHART [id number] Comment: A GFR of <60 mL/min is indicative of chr onic kidney disease. (MDRD calculation valid on patients 18 - 70 years.) eGFR Black/ >60 >=60 [id number] POWERCHART Bilirubin, Total, S 0.3 0.1 - 1.0 MGDL POWER CHART Total Protein, S 7.2 6.3 - 7.9 GDL POWERCHAR T Glucose 88 70 - 139 MGDL POWERCHART Specimen (Source) Anatomical Collection Method Collection Time Re ceived Time Location / / Volume Laterality Blood 12/26/2012 10:05 AM IMMIGRATION ATTORNEY Ele Patterson N.P. LAB BLOOD ADD-ON Performing Organization Address City/State/ZIP Code Phon e Number POWERCHART documented in this encounter Visit Diagnoses Not on filedocumented in this encounter
--- OUTSIDE RECORDS SUMMARY | 2022-07-31 12:33 | XMS_ITS | Encounter Summary ---
:1975 Author Organization [facility] Address [address] [place] [address] Care Team Providers Name Role Phone Unavailable Primary Care Provider Unavailable Encounter Details Date Type Department Care Team Description 01/15/2014 Hospital Encounter HX [facility] ME Josias Patterson, N.P. [address] [place] [address] [phone] (Wo rk) Social History Tobacco Use Types Packs/Day Years Used Date Smoking Tobacco: Never Assessed Sex Assigned at Date Recorded Male 07/27/2022 1:15 PM CDT documented as of this encounter Last Filed Vital Signs Vital Sign Reading Time Taken Comments Blood Pressure 128/74 01/15/2014 3:26 PM GLOVE PRESSER Pulse 60 01/15/2014 3:26 PM GLOVE PRESSER Temperature - - Respiratory Rate 16 01/15/2014 3:26 PM GLOVE PRESSER Oxygen Saturation - - Inhaled Oxygen Concentration - - Weight 74.4 kg (164 lb 0.4 oz) 01/15/2014 3:26 PM GLOVE PRESSER Height 175 cm (5' 8.9) 01/15/2014 3:26 PM GLOVE PRESSER Body Mass Index 24.29 01/15/2014 3:26 PM GLOVE PRESSER documented in this encounter Progress Notes Vidhi Patterson, N.P. - 01/15/2014 3:14 PM CST [id number] CHIEF COMPLAINT/REASON FOR VISIT Request for referral for vasectomy. Possible erectile dysfunction. HISTORY OF PRESENT ILLNESS Eladio is a 38-year-old male who is here today with two concerns. He is requesting referral perhaps toa surgeon in [place] for vasectomy. He has one child who is 7 years old. He reports that he and his desire no more children. He is wondering if he can be referred to have consultation regardingthis procedure. Eladio's other concern today is regarding some problems with sexual dysfunction he hasbeen experiencing over the past several years. He reports that when he and his are sexually active that he is able to obtain an erection but is not able to maintain it through ejaculation. He reports that this issue does not happen all the time but certainly more frequently than not. He denies any problems with urination. No scrotal swelling or redness. No discharge. He reports they have been for approximately 15 years. He notes with sexual activity without his that he is able to obtain an erection and maintain it through ejaculation. MEDICATIONS Medications reviewed. No change. Please see electronic medical record. ALLERGIES No known drug allergies. PAST MEDICAL HISTORY/SURGICAL HISTORY Past medical history reviewed and unchanged, please see electronic medical record. VITAL SIGNS Temperature 36.4, pulse 60, respirations 16, blood pressure 128/74, O2 sat 99% on room air. PHYSICAL EXAMINATION Physical exam is deferred. IMPRESSION/REPORT/PLAN 1. Desire for vasectomy. 2. Erectile dysfunction. PLAN: 1. In regards to Eladio's desire for the vasectomy, I have referred him to [facility] perhis request to Dr. Ibrahim. We will coordinate this referral through our control panel operator crude unit. She will contact Eladio regarding necessary steps to make to obtain an appointment. Had a very long discussion today with Eladio regarding his sexual dysfunction issues. We discussed that he is able to maintain and obtain erections through ejaculation through masturbation. Perhaps some of the issues he has been experiencing with his have more to do with his relationship. We discussed that certainly I would behappy to pursue a workup regarding his testosterone levels and thyroid. At this time, Eladio was comfor table with discussing some of the concerns he mentioned today with his to see if this would improve some of the concerns he has been experiencing. Certainly if at any time he would like to pursue a more formal workup, I would be willing to do this for him. Britni questions have been addressed and he is agreeable to this plan of care. Patient Education #1 Patient/parent/caregiver is ready to learn. No apparent learning barriers were identified. Learning preferences included listening. Explained diagnosis and treatment plan. Patient/parent/caregiver expressed understanding of the content. Malka Moy/jose Electronically Signed By: VIDHI PATTERSON NP On: 01/19/2014 10:16 AM Source: [facility] Document Id: [id number] E PRESSER documented in this encounter Miscellaneous Notes Miscellaneous - Jaya Richardson L.P.N. - 08/13/2014 8:46 AM CDT *General Message Document Contains Addenda Addendum by JAYA RICHARDSON LPN on 13 August 2014 09:08:09 CDT noted and Rx faxed to [facility] Addendum by VIDHI PATTERSON NP on 13 August 2014 08:56:08 CDT From: VIDHI PATTERSON NP To: JAYA RICHARDSON LPN; Sent: 08/13/2014 08:56:08 CDT Subject: RE: *General Message Rx for valtrex and norco prescribed. Addendum by VIDHI PATTERSON NP on 13 August 2014 08:55:50 CDT Submitted: Order:HYDROcodone-acetaminophen (Jasper 5 mg-325 mg oral tablet) 1 to 2 tablets PO q6hr Qty: 30 tab(s) Refills: 0 Substitutions Allowed PRN Pain Print - [id number] No more than 4,000mg acetaminophen/24hrs Signed by VIDHI PATTERSON NP Submitted: Order:valACYclovir (Valtrex 1 g oral tablet) 1 tab(s) PO 3xDay Qty: 21 tab(s) Duration: 7 day(s) Refills: 0 Substitutions Allowed Route To Pharmacy - [facility] [id number] Signed by VIDHI PATTERSON NP From: JAYA RICHARDSON LPN To: VIDHI PATTERSON NP; JAYA RICHARDSON LPN; Cc: APARNA AVERY RN; Sent: 08/13/2014 08:46:17 CDT Subject: *General Message Eladio Garcia called today and has had a rash on his back, one sided for a day and a half. 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 No openings in schedule to see you A. Rash is limited to one side and would like to have antiviral called in R. Would like it calledd to [facility] in [place] [phone] home Source: [facility] POWERCHART Document Id: [id number] Electronically signed by Conversion, [facility] Media Consultant Outside Sales [id number] at 04/15/2017 11:20 PM CDT Miscellaneous - Aparna Avery R.N. - 05/13/2014 11:00 AM CDT Med Management Document Contains Addenda Addendum by APARNA AVERY RN on 13 May 2014 12:16:42 CDT LM for pt to call back to clinic, script sent, labs pended Addendum by APARNA AVERY RN on 13 May 2014 12:14:44 CDT Submitted: Order:Comprehensive Metabolic Panel (CMP) Details: Routine, 05/20/2014 0:00 CDT, 1 Week, Not Required, Acne NOS Signed by APARNA AVERY RN Submitted: Order:CBC without Diff Details: Routine, 05/20/2014 0:00 CDT, 1 Week, Not Required, Acne NOS Signed by APARNA AVERY RN Addendum by VIDHI PATTERSON NP on 13 May 2014 11:09:22 CDT From: VIDHI PATTERSON NP Sent: 05/13/2014 11:09:21 CDT Subject: RE:Med Management Approved Order:minocycline (minocycline 100 mg oral tablet) 1 tab(s) PO Daily Qty: 30 tab(s) Refills: 5 Substitutions Allowed Route To Pharmacy - [facility] [address] Signed by VIDHI PATTERSON NP 05/13/2014 11:09:13 Addendum by VIDHI PATTERSON NP on 13 May 2014 11:09:08 CDT From: VIDHI PATTERSON NP To: APARNA AVERY RN; Sent: 05/13/2014 11:09:08 CDT Subject: RE: Med Management Ok to pend labs per protocal and contact patient to come in to have done. Thanks. From: APARNA AVERY RN To: VIDHI PATTERSON NP; APARNA AVERY RN; Sent: 05/13/2014 11:00:08 CDT Subject: Med Management On hold pending signature Order:minocycline (minocycline 100 mg oral tablet) 1 tab(s) PO Daily Qty: 30 tab(s) Refills: 5 Substitutions Allowed Route To Pharmacy - [facility] [address] Labs needed per protocol if senior living use, would you review plz? Source: [facility] POWERCHART Document Id: [id number] Electronically signed by Conversion, [facility] Media Consultant Outside Sales [id number] at 04/15/2017 11:20 PM CDT Miscellaneous - Jaya Richardson LCieraP.N. - 03/11/2014 10:09 AM CDT General Message Document Contains Addenda Addendum by JAYA RICHARDSON LPN on 11 March 2014 10:46:21 CDT noted Addendum by VIDHI PATTERSON NP on 11 March 2014 10:12:32 CDT From: VIDHI PATTERSON NP To: JAYA RICHARDSON LPN; Sent: 03/11/2014 10:12:32 CDT Subject: RE: General Message Rx refilled. Addendum by VIDHI PATTERSON NP on 11 March 2014 10:12:14 CDT Submitted: Order:desonide topical (desonide 0.05% topical ointment) 1 christy Topical 3xDay Qty: 15 gm Duration: 14 day(s) Refills: 1 Substitutions Allowed Route To Pharmacy - [facility] [id number] Signed by VIDHI PATTERSON NP Documented Discontinue:desonide topical (desonide topical 0.05% ointment) Signed by VIDHI PATTERSON NP 03/11/2014 10:11:43 From: JAYA RICHARDSON LPN To: VIDHI PATTERSON NP; JAYA RICHARDSON LPN; Cc: RADHA KUHN V; Sent: 03/11/2014 10:09:44 CDT Subject: General Message Patient call requesting this medication also, but we only have it documented by history. Could you order this for the patient also? Desonide topical ointment 0.05% unsure of amount to be dispenced if you could fill this in as I am unable to propose this. Thank you. Source: [facility] POWERCHART Document Id: [id number] Electronically signed by Ishaan [facility] Media Consultant Outside Sales [id number] at 04/15/2017 11:20 PM CDT Miscellaneous - Jaya Richardson, L.P.N. - 03/11/2014 9:55 AM CDT Med Management Document Contains Addenda Addendum by JAYA RICHARDSON LPN on 11 March 2014 10:46:02 CDT noted Addendum by VIDHI PATTERSON NP on 11 March 2014 10:13:04 CDT From: VIDHI PATTERSON NP Sent: 03/11/2014 10:13:04 CDT Subject: RE:Med Management Approved Order:desoximetasone topical (desoximetasone 0.25% topical cream) 1 christy Topical 2xDay Qty: 60 gm Refills: 1 Substitutions Allowed Route To Pharmacy - [facility] [address] Signed by VIDHI PATTERSON NP 03/11/2014 10:12:58 From: JAYA RICHARDSON LPN To: VIDHI PATTERSON NP; JAYA RICHARDSON LPN; Cc: RADHA KUHN V; Sent: 03/11/2014 09:55:07 CDT Subject: Med Management On hold pending signature Order:desoximetasone topical (desoximetasone 0.25% topical cream) 1 christy Topical 2xDay Qty: 60 gm Refills: 1 Substitutions Allowed Route To [facility] [address] Source: [facility] POWERCHART Document Id: [id number] Electronically signed by Ishaan [facility] Media Consultant Outside Sales [id number] at 04/15/2017 11:20 PM CDT Miscellaneous - Aparna Avery R.N. - 01/18/2014 3:16 PM CST Med Management Document Contains Addenda Addendum by APARNA AVERY RN on 18 January 2014 16:39:14 GLOVE PRESSER noted Addendum by VIDHI PATTERSON NP on 18 January 2014 15:48:56 GLOVE PRESSER From: VIDHI PATTERSON NP Sent: 01/18/2014 15:48:55 GLOVE PRESSER Subject: RE:Med Management Approved Order:lisinopril (lisinopril 10 mg oral tablet) 1 tab(s) PO Daily Qty: 90 tab(s) Duration: 90 day(s) Refills: 3 Substitutions Allowed Route To [facility] [address] Signed by VIDHI PATTERSON NP 01/18/2014 15:48:19 From: APARNA AVERY RN To: VIDHI PATTERSON NP; APARNA AVERY RN; Sent: 01/18/2014 15:16:43 GLOVE PRESSER Subject: Med Management On hold pending signature Order:lisinopril (lisinopril 10 mg oral tablet) 1 tab(s) PO Daily Qty: 90 tab(s) Duration: 90 day(s) Refills: 3 Substitutions Allowed Route To Pharmacy - [facility] [address] Dictation from 01-15-13 visit not available yet, did you want this med to continue? Labs were done, and results letter. Proposed 1 yr. Source: [facility] POWERCHART Document Id: [id number] Electronically signed by Conversion, [facility] Media Consultant Outside Sales [id number] at 04/15/2017 11:20 PM CDT Miscellaneous - Vidhi Patterson, N.P. - 01/18/2014 8:59 AM CST referral Document Contains Addenda Addendum by VIDHI PATTERSON NP on 21 January 2014 07:34:48 GLOVE PRESSER Message noted. Addendum by GREGG HENDRIX on 20 January 2014 16:16:20 GLOVE PRESSER From: GREGG HENDRIX To: VIDHI PATTERSON NP; Sent: 01/20/2014 16:16:20 GLOVE PRESSER Subject: RE: referral Patient is scheduled for Monday February 17, 2014 at 10:30, check in is 10:[address] Rosales is no longer practicing in [place]. I have left VM for patient to call to advise. From: VIDHI PATTERSON NP To: GREGG HENDRIX; Sent: 01/18/2014 08:59:24 GLOVE PRESSER Subject: referral Referral Request Date: 01/18/2014 Provider: Emily Patterson Where Referral is [facility] be made: [facility] Type of Referral/Department: urology Dr. Rosales Specific Clinical Question: Eladio would like to have vasectomy Pertinent History: Best Phone Number: Appointment Days to Avoid: Best Time of day: Date/Time of appointment made: Sign off: Source: [facility] POWERCHART Document Id: [id number] Miscellaneous - Yordy Green, L.P.N. - 01/15/2014 3:26 PM CST Adult Manager Video Intake/History Adult Manager Video Intake/History Entered On: 01/15/2014 15:30 GLOVE PRESSER Performed On: 01/15/2014 15:26 GLOVE PRESSER by YORDY GREEN CUSTOMS PORT DIRECTOR Intake Chief Complaint : Discuss Vasectomy and Erectile dysfunction Temperature Core : 36.4 DegC(Converted to: 97.5 DegF) (LOW) Peripheral Pulse Rate : 60 /min Respiratory Rate : 16 /min Systolic Blood Pressure : 128 mmHg Diastolic Blood Pressure : 74 mmHg NIBP Mean : 92 mmHg BP Location : Right upper extremity Blood Pressure Cuff Size : Regular SpO2 : 99 % Oxygen Therapy : Room air Height : 175 cm(Converted to: 5 ft 9 inch(es), 69 inch(es)) Actual Weight : 74.4 kg(Converted to: 164 lb 0 oz) Weight Source : Standing scale Dosing Weight Clinic : 74.4 kg Clinic BSA : 1.9 Body Mass Index : 24.29 kg/m2 YORDY GREEN [employer] PORT DIRECTOR - 01/15/2014 15:26 GLOVE PRESSER General Info Information Given By : Patient Preferred Communication Mode : Verbal Languages : Iranian YORDY GREEN [facility] - 01/15/2014 15:26 GLOVE PRESSER Subjective Pain Symptoms : No YORDY GREEN LPN - 01/15/2014 15:26 GLOVE PRESSER Dependent Habits Tobacco Use/Currently Using : No Smoking Status : Never smoker YORDY GREEN [employer] PORT DIRECTOR - 01/15/2014 15:26 GLOVE PRESSER Tobacco Use Grid Last Use : never YORDY GREEN LPN - 01/15/2014 15:26 GLOVE PRESSER Alcohol Use : Yes YORDY GREEN LPN - 01/15/2014 15:26 GLOVE PRESSER Caffeine Use Grid Caffeine Use : Current Type : Coffee Frequency : Daily YORDY GREEN LPN - 01/15/2014 15:26 GLOVE PRESSER Source: [facility] POWERCHART Document Id: [id number] GLOVE PRESSER!37 E PRESSER Miscellaneous - Yordy Green L.P.NCiera - 01/15/2014 3:25 PM CST Health Assessment Health Assessment Entered On: 01/15/2014 15:26 GLOVE PRESSER Performed On: 01/15/2014 15:25 GLOVE PRESSER by YORDY GREEN LPN Health Assessment Complete Health Assessment Complete or Modified : Annual Health Assessment Annual Health Assessment Completed : Yes YORDY GREEN LPN - 01/15/2014 15:25 GLOVE PRESSER Nutrition Nutrition Risk Factors by History Adult : None YORDY GREEN [facility] - 01/15/2014 15:25 GLOVE PRESSER Functional Current Daily Living Assistance : None YORDY GREEN LPN - 01/15/2014 15:25 GLOVE PRESSER Dependent Habits Tobacco Use/Currently Using : No Smoking Status : Never smoker YORDY GREEN [employer] PORT DIRECTOR - 01/15/2014 15:25 GLOVE PRESSER Tobacco Use Grid Last Use : never YORDY GREEN LPN - 01/15/2014 15:25 GLOVE PRESSER Alcohol Use : Yes YORDY GREEN LPN - 01/15/2014 15:25 GLOVE PRESSER Caffeine Use Grid Caffeine Use : Current Type : Coffee Frequency : Daily YORDY GREEN [facility] - 01/15/2014 15:25 GLOVE PRESSER AUDIT Tool How Often Do You Have A Drink : 4 or more times a week How Many Drinks in a Day When Drinking : 1 or 2 Six or More Drinks On One Occassion : Never Audit Phase 1 Score : 4 YORDY GREEN C[employer] PORT DIRECTOR - 01/15/2014 15:25 GLOVE PRESSER Psychosocial Domestic Abuse Concerns : None YORDY GREEN LPN - 01/15/2014 15:25 GLOVE PRESSER Advance Directive Advanced Directives : No YORDY GREEN LPN - 01/15/2014 15:25 GLOVE PRESSER Educ Needs Learning Style Preference Adult Grid Patient : None Family : None YORDY GREEN LPN - 01/15/2014 15:25 GLOVE PRESSER Source: [facility] POWERCHART Document Id: [id number] GLOVE PRESSER!33 E PRESSER documented in this encounter Plan of Treatment Not on filedocumented as of this encounter Visit Diagnoses Not on filedocumented in this encounter
--- OUTSIDE RECORDS SUMMARY | 2022-07-31 12:33 | XMS_ITS | Encounter Summary ---
:1975 Author Organization [facility] Address [address] [place] [address] Care Team Providers Name Role Phone Unavailable Primary Care Provider Unavailable Encounter Details Date Type Department Care Team Description 06/19/2012 Hospital Encounter HX [facility] ME Jim Vela III, M.D. [address] [place] [address] [phone] (Wo rk) Social History Tobacco Use Types Packs/Day Years Used Date Smoking Tobacco: Never Assessed Sex Assigned at Date Recorded Male 07/27/2022 1:15 PM CDT documented as of this encounter Miscellaneous Notes Miscellaneous - Carisa Max, L.P.N. - 06/19/2012 4:06 PM CDT Ambulatory Vitals Height Weight Ambulatory Vitals Height Weight Entered On: 06/19/2012 16:06 CDT Performed On: 06/19/2012 16:06 CDT by CARISA MAX Vitals/Ht/Wt Temperature Core : 36.9C(Converted to: 98.4DegF) CARISA MAX - 06/19/2012 16:06 CDT Source: [facility] POWERCHART Document Id: [id number] documented in this encounter Plan of Treatment Not on filedocumented as of this encounter Visit Diagnoses Not on filedocumented in this encounter
--- OUTSIDE RECORDS SUMMARY | 2022-07-31 12:33 | XMS_ITS | Encounter Summary ---
:1975 Author Organization [facility] Address [address] [place] [address] Care Team Providers Name Role Phone Unavailable Primary Care Provider Unavailable Encounter Details Date Type Department Care Team Description 04/25/2012 Hospital Encounter [facility]X [facility] ME Josias Patterson, N.P. [address] [place] [address] 7701 (Wo rk) Social History Tobacco Use Types Packs/Day Years Used Date Smoking Tobacco: Never Assessed Sex Assigned at Date Recorded Male 07/27/2022 1:15 PM CDT documented as of this encounter Last Filed Vital Signs Vital Sign Reading Time Taken Comments Blood Pressure 110/70 04/25/2012 2:11 PM CDT Pulse 44 04/25/2012 2:11 PM CDT Temperature - - Respiratory Rate - - Oxygen Saturation - - Inhaled Oxygen Concentration - - Weight 74.3 kg (163 lb 12.8 oz) 04/25/2012 2:11 PM CDT Height - - Body Mass Index - - documented in this encounter Progress Notes Vidhi Patterson, N.P. - 04/25/2012 12:00 AM CDT [id number] CHIEF COMPLAINT/REASON FOR VISIT Concern about skin lesion. HISTORY OF PRESENT ILLNESS Marko is a 36-year-old male who is here today with concerns about a circular lesion on his right upper arm. He states it has been there for approximately two months. It has been rough and scaly. He states it has not been horribly symptomatic and not itchy, but it does not seem to be getting better. He does report a history of significant sun exposure and lack of use of sunscreen and is wondering if this is something that needs to be biopsied. Since the lesion has been present it has been rough and scaly the entire time. He has developed no other lesions, only the one on his right forearm. CURRENT MEDICATIONS No change. Please see EMR. ALLERGIES No known drug allergies. PAST MEDICAL/SURGICAL HISTORY 1. Acne. 2. Hypertension. 3. Allergic rhinitis. VITAL SIGNS Temperature 36.1. Pulse 44. Blood pressure 110/70. Oxygen saturation is 98%. PHYSICAL EXAMINATION GENERAL: Marko is alert and oriented x3. He appears in no acute distress. SKIN: Right upper extremity is examined. He has an approximately 5 mm mostly round, rough, scaly lesion noted to the right biceps area. It is slightly erosive with the center being clear and scaling noted around the edges. PROCEDURE After written consent was obtained and the procedure explained, a punch biopsy was performed on the concerned area. Lidocaine 1% with epinephrine was used to anesthetize the area after there was thoroughly cleansed with alcohol. Punch biopsy for then performed in sterile fashion. Minimal bleeding after procedure. Pressure was applied as well as a Bacitracin dressing. IMPRESSION/REPORT/PLAN Skin lesion. PLAN I discussed with Marko that we will contact him by phone regarding his test results. He did give us permission to leave the information with his , Linda. Wound care was discussed. Further plan of care to be determined upon test results. Patient Education Ready to learn No apparent learning barriers were identified Learning preferences include listening Explained diagnosis and treatment plan Patient/Child/Caregiver expressed understanding of the content Vidhi Patterson N.P. / Electronically Signed By: VIDHI PATTERSON NP On: 04/29/2012 03:52 PM Source: [facility] [email or web address] Document Id: [id number] documented in this encounter Nursing Notes Casie Salas L.P.N. - 05/05/2012 3:17 PM CDT pathology report sent to pt. Electronically Signed By: CASIE SALAS LPN On: 05/05/2012 03:35 PM Source: [facility] POWERCHART Document Id: [id number] documented in this encounter Miscellaneous Notes Miscellaneous - Vidhi Patterson N.P. - 04/25/2012 3:08 PM CDT Ambulatory Patient Summary [id number] [place] [address] Visit Information Name: MARKO JONES Current Date: 04/25/2012 15:08:08 Physicians Attending Provider: VIDHI PATTERSON BANJO REPAIR PERSON Primary Care Provider: SUKH LI III, MD Your Medications Here is a [...] tablet) 100 mg Oral once a day tretinoin topical (Retin A Micro Gel Pump [...] (Melatonin) Oral once a day (at bedtime) desoximetasone topical (desoximetasone topical 0.25% cream) 1 christy Topical two times a day desonide topical (desonide topical 0.05% ointment) 1 christy Topical once a day Attention: If you have any medications at [...] Active 2007 07/16/11 date of onset unknown Your Upcoming Appointments Date Time Location Reason Provider No Appointments found Your Goals/Additional instructions: Source: [facility] POWERCHART Document Id: [id number] T Elisabet - Vidhi Patterson NGe - 04/25/2012 3:08 PM CDT Ambulatory Depart Summary [address] [address] Visit Information Name: MARKO JONES Visit Date: 04/25/2012 15:08:07 Attending Provider: VIDHI PATTERSON BANJO REPAIR PERSON Primary Care Provider: SUKH LI III, MD MARKO JONES has been given [...] tablet) 100 mg Oral once a day tretinoin topical (Retin A Micro Gel Pump [...] (Melatonin) Oral once a day (at bedtime) desoximetasone topical (desoximetasone topical 0.25% cream) 1 christy Topical two times a day desonide topical (desonide topical 0.05% ointment) 1 christy Topical once a day Attention: If you have any medications at home that are not on this list, DO NOT take them until youcontact your provider for clarification. Additional Information: Source: [facility] POWERCHART Document Id: [id number] Elisabet - Casie Salas L.P.NCiera - 04/25/2012 2:13 PM CDT Health Assessment Health Assessment Entered On: 04/25/2012 14:13 CDT Performed On: 04/25/2012 14:13 CDT by CASIE SALAS LPN Health Assessment Complete Health Assessment Complete or Modified : Annual Health Assessment Annual Health Assessment Completed : Yes CASIE SALAS LPN - 04/25/2012 14:13 CDT Nutrition Nutrition Risk Factors by History Adult : None CASIE SALAS LPN - 04/25/2012 14:13 CDT Functional Current Daily Living Assistance : None CASIE SALAS LPN - 04/25/2012 14:13 CDT Dependent Habits Tobacco Use/Currently Using : No Smoking Status : Never smoker CASIE SALAS LPN - 04/25/2012 14:13 CDT Caffeine Use Grid Caffeine Use : Current Type : Coffee Frequency : Daily CASIE SALAS LPN - 04/25/2012 14:13 CDT Psychosocial Domestic Abuse Concerns : None CASIE SALAS LPN - 04/25/2012 14:13 CDT Advance Directive Advanced Directives : No CASIE SALAS LPN - 04/25/2012 14:13 CDT Educ Needs Learning Style Preference Adult Grid Patient : None Family : None CASIE SALAS LPN - 04/25/2012 14:13 CDT Source: [employer] Document Id: [id number] Miscellaneous - Casie Salas L.P.NCiera - 04/25/2012 2:11 PM CDT 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 Intake/History 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 Intake/History Entered On: 04/25/2012 14:13 CDT Performed On: 04/25/2012 14:11 CDT by CASIE SALAS LPN Intake Chief Complaint : spot on rigt upper arm Onset of Symptoms : noted over a month Temperature Core : 36.1C(Converted to: 97.0DegF) (LOW) Peripheral Pulse Rate : 44/min (<LLOW) Heart Rhythm : Regular Systolic Blood Pressure : 110mmHg Diastolic Blood Pressure : 70mmHg NIBP Mean : 83mmHg BP Location : Left upper extremity Blood Pressure Cuff Size : Regular SpO2 : 98% Oxygen Therapy : Room air Actual Weight : 74.3kg(Converted to: 163lb 13oz) Weight Source : Standing scale Dosing Weight Clinic : 74.30kg CASIE SALAS PHARMACY DISTRICT MANAGER - 04/25/2012 14:11 CDT Subjective Pain Symptoms : No CASIE SALAS LPN - 04/25/2012 14:11 CDT Dependent Habits Tobacco Use/Currently Using : No Smoking Status : Never smoker Alcohol Use : Yes CASIE SALAS PHARMACY DISTRICT MANAGER - 04/25/2012 14:11 CDT Caffeine Use Grid Caffeine Use : Current Type : Coffee Frequency : Daily CASIE SALAS LPN - 04/25/2012 14:11 CDT Allergy Allergies (Active) NKA Estimated Onset Date: Unspecified ; Created By: FREDDIE BECKER LPN; Reaction Status: Active ; Category: Drug ; Substance: NKA ; Type: Allergy ; Updated By: FREDDIE BECKER LPN; Reviewed Date: 04/25/2012 14:09 CDT Source: [employer] Document Id: [id number] documented in this encounter Plan of Treatment Not on filedocumented as of this encounter Procedures Procedure Name Priority Date/Time Associated Comments Diagnosis DERMATOPATHOLOGY CONSULT Routine 04/25/2012 3:00 Results for this PM CDT procedure are i n the results section. LAB SURG PATH,LEVEL IV Routine 04/25/2012 3:00 Re sults for this PRO AND TECH PM CDT procedure are i n the results section. documented in this encounter Results LAB SURG PATH,LEVEL IV PRO AND TECH (04/25/2012 3:00 PM CDT) Analysis Performed At Patho logist Time Signature HXLvl IV Surg Performed POWERCHART [facility] Comment: Test Performed by: [address] [address] Research Worker Encyclopedia: Ciaran torres III, M.D. Specimen Anatomical Collection Method Collection Time Receive d Time (Source) Location / / Volume Laterality Tissue 04/25/2012 3:00 PM 2 7:25 CDT AM CDT Historical Provider [facility] Performing Organization Address City/State/ZIP Code Phon e Number POWERCHART PATHOLOGY DERMPATH CONSULT, WET TISSUE (04/25/2012 3:00 PM CDT) [facility] Method Time Signature HXDrm Exam [id number] POWERCHART [facility] HXDrm Exam See Comment POWERCHART [facility] Comment: RESULT: Vidhi Patterson M.D. [facility] See Comment POWERCH ART Comment: [facility] [place] [address] HXDrm Exam [facility] See Comment POWERCH ART Comment: A. ?? Received in formalin, labeled with the patient's name and and lab eled as right upper bicep is a 0.5 cm in diameter by 0.1 cm in constance [facility] skin punch biopsy. There is an ill-defined 0.2 x 0.2 cm romero pigmented lesion with irregular borders eccentrically located on the skin surface, approaching the margin. ??The specimen i s bisected and submitted entirely in cassette A1. HXDrm Exam [facility] See Comment POWERCH ART Comment: A. ??Right upper bicep area lesion, Skin : ??Lichenoid interface inflammation Comment: ??The differential diagnosis fo r this histologic pattern includes a lichenoid keratosis or possib ly a lichenoid eruption including lichenoid drug reaction or lic hen planus, if there are multiple lesions. HXDrm Exam [facility] See Comment POWERCH ART Comment: RESULT: 04/30/2012 12:48 ??Interpreted by : Sukh Bueno M.D Report electronically signed by Sukh Bueno M.D. Transcribed by: [email or web address] 04/30/2012 08:58:57 Test Performed by: [address] [address] Research Worker Encyclopedia: Ciaran torres III, M.D. Specimen Anatomical Collection Method Collection Time Receive d Time (Source) Location / / Volume Laterality Tissue 04/25/2012 3:00 PM 2 3:00 CDT PM CDT Vidhi Patterson N.P. LAB PATH DERM ORDERABLES Performing Organization Address City/State/ZIP Code Phon e Number POWERCHART documented in this encounter Visit Diagnoses Not on filedocumented in this encounter
--- OUTSIDE RECORDS SUMMARY | 2022-07-31 12:33 | XMS_ITS | Encounter Summary ---
:1975 Author Organization [facility] Address [address] [place] [address] Care Team Providers Name Role Phone Unavailable Primary Care Provider Unavailable Encounter Details Date Type Department Care Team Description 12/26/2012 Hospital Encounter HX [facility] ME Josias Patterson, N.P. [address] [place] [address] 7701 (Wo rk) Social History Tobacco Use Types Packs/Day Years Used Date Smoking Tobacco: Never Assessed Sex Assigned at Date Recorded Male 07/27/2022 1:15 PM CDT documented as of this encounter Last Filed Vital Signs Vital Sign Reading Time Taken Comments Blood Pressure 142/82 12/26/2012 10:09 AM TREE PLANTER Pulse 57 12/26/2012 10:09 AM TREE PLANTER Temperature - - Respiratory Rate 18 12/26/2012 10:09 AM TREE PLANTER Oxygen Saturation - - Inhaled Oxygen Concentration - - Weight 75.3 kg (166 lb 0.1 oz) 12/26/2012 10:09 AM TREE PLANTER Height 175.6 cm (5' 9.13) 12/26/2012 10:09 AM TREE PLANTER Body Mass Index 24.42 12/26/2012 10:09 AM TREE PLANTER documented in this encounter Miscellaneous Notes Miscellaneous - Casie Salas, L.P.N. - 12/26/2012 10:14 AM CST Health Assessment Health Assessment Entered On: 12/26/2012 10:15 TREE PLANTER Performed On: 12/26/2012 10:14 TREE PLANTER by CASIE SALAS LPN Health Assessment Complete Health Assessment Complete or Modified : Annual Health Assessment Annual Health Assessment Completed : Yes CASIE SALAS LPN - 12/26/2012 10:14 TREE PLANTER Nutrition Nutrition Risk Factors by History Adult : None CASIE SALAS LPN - 12/26/2012 10:14 TREE PLANTER Functional Current Daily Living Assistance : None CASIE SALAS LPN - 12/26/2012 10:14 TREE PLANTER Dependent Habits Tobacco Use/Currently Using : No Smoking Status : Never smoker CASIE SALAS LPN - 12/26/2012 10:14 TREE PLANTER Caffeine Use Grid Caffeine Use : Current Type : Coffee Frequency : Daily CASIE SALAS LPN - 12/26/2012 10:14 TREE PLANTER Psychosocial Domestic Abuse Concerns : None CASIE SALAS LPN - 12/26/2012 10:14 TREE PLANTER Advance Directive Advanced Directives : No CASIE SALAS LPN - 12/26/2012 10:14 TREE PLANTER Educ Needs Learning Style Preference Adult Grid Patient : None Family : None CSAIE SALAS LPN - 12/26/2012 10:14 TREE PLANTER Source: [facility] [employer] Document Id: [id number] PLANTER Miscellaneous - Casie Salas, L.P.N. 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3kg(Converted to: 166lb 0oz) Weight Source : Standing scale Dosing Weight Clinic : 75.30kg Clinic BSA : 1.92 Body Mass Index : 24.42kg/m2 CASIE SALAS LPN - 12/26/2012 10:09 TREE PLANTER General Info Information Given By : Patient Languages : Latvian CASIE SALAS LPN - 12/26/2012 10:09 TREE PLANTER Subjective Pain Symptoms : No CASIE SALAS LPN - 12/26/2012 10:09 TREE PLANTER Dependent Habits Tobacco Use/Currently Using : No Smoking Status : Never smoker Alcohol Use : Yes CASIE SALAS LPN - 12/26/2012 10:09 TREE PLANTER Caffeine Use Grid Caffeine Use : Current Type : Coffee Frequency : Daily CASIE SALAS LPN - 12/26/2012 10:09 TREE PLANTER Allergy Allergies (Active) NKA Estimated Onset Date: Unspecified ; Created By: FREDDIE BECKER LPN; Reaction Status: Active ; Category: Drug ; Substance: NKA ; Type: Allergy ; Updated By: FREDDIE BECKER LPN; Reviewed Date: 12/26/2012 10:08 TREE PLANTER Source: [facility] POWERCHART Document Id: [id number] PLANTER documented in this encounter Plan of Treatment Not on filedocumented as of this encounter Visit Diagnoses Not on filedocumented in this encounter
--- NOTE | 2022-07-31 14:04 | W.ANESCHARGE ---
Anesthesia Charges Start Date/Time Anesthesia Start Date: 07/31/22 Anesthesia Start Time: 13:30 Stop Date/Time Anesthesia Stop Date: 07/31/22 Anesthesia Stop Time: 14:00 Summary Emergency: No
--- NOTE | 2022-07-31 14:40 | W.ANESCHARGE ---
Anesthesia Charges Start Date/Time Anesthesia Start Date: 07/31/22 Anesthesia Start Time: 13:30 Stop Date/Time Anesthesia Stop Date: 07/31/22 Anesthesia Stop Time: 14:00 Summary Emergency: No
== END 2022-07-31 12:31 | disposition home or self-care (01) ==
LOC: OP CLINIC 12:30
PROVIDERS: PCP Family Medicine; Visit Provider Surgery
DX: Z12.11 Encounter for screening for malignant neoplasm of colon (principal); K57.30 Diverticulosis of large intestine without perforation or abscess without bleeding
CPT/HCPCS: 00812; 45378; J2704

== ENCOUNTER 2023-08-09 07:51 | Outpatient (CLI) | payer OTHER, SELFPAY | END 2023-08-09 07:52 | disposition home or self-care (01) | LOC: NFLDREF 08-12 13:26 | PROVIDERS: PCP Family Medicine; Referring Provider Family Medicine; Visit Provider Family Medicine | DX: I10 Essential (primary) hypertension (principal); Z13.6 Encounter for screening for cardiovascular disorders | CPT/HCPCS: 80048; 80061 ==

== ENCOUNTER 2023-10-25 06:38 | Outpatient (CLI) | payer OTHER, SELFPAY | END 2023-10-25 06:39 | disposition home or self-care (01) | LOC: NFLDREF 06:39 | PROVIDERS: PCP Family Medicine; Visit Provider Family Medicine | DX: R30.0 Dysuria (principal) | CPT/HCPCS: 87086 ==

== ENCOUNTER 2023-11-09 11:37 | Emergency (ER) | payer OTHER, SELFPAY ==
[2023-11-09 12:22] VITALS: BP 120/75; PULSE 64; RESP 18; TEMP 36.7; O2SAT 100; BMI 25.4
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
[2023-11-09] MEDS: dexAMETHasone 10 MG/ML inj PO (13:03)
[2023-11-09 13:07] LABS: PCR FLU A Negative PCR FLU A (Negative); PCR FLU B Negative PCR FLU B (Negative); PCR RSV Negative PCR RSV (Negative)
[2023-11-09 13:11] VITALS: PULSE 68; RESP 16; O2SAT 99
[2023-11-09 13:12] LABS: SARS PCR* Negative SARS-CoV-2 (Negative)
== END 2023-11-09 13:33 | disposition home or self-care (01) ==
PROVIDERS: Emergency Provider Emergency Medicine Emergency Medical Services; PCP Family Medicine
DX: J06.9 Acute upper respiratory infection, unspecified (principal)
CPT/HCPCS: 87631; 99283; 99284; J1100

== ENCOUNTER 2024-07-07 11:06 | Outpatient (CLI) | payer OTHER, SELFPAY | END 2024-07-07 11:07 | disposition home or self-care (01) | PROVIDERS: PCP Family Medicine; Visit Provider Family Medicine | DX: M10.9 Gout, unspecified (principal) | CPT/HCPCS: 84550 ==

== ENCOUNTER 2024-10-29 09:20 | Outpatient (CLI) | payer OTHER, SELFPAY | END 2024-10-29 09:21 | disposition home or self-care (01) | LOC: NFLDREF 14:02 | PROVIDERS: PCP Family Medicine; Referring Provider Family Medicine; Visit Provider Family Medicine | DX: E78.5 Hyperlipidemia, unspecified (principal); M10.9 Gout, unspecified; I10 Essential (primary) hypertension | CPT/HCPCS: 80053; 80061; 84550 ==